=== PATIENT | female | born 1945 | race Caucasian/White ===

== ENCOUNTER 2021-09-19 12:12 | Inpatient (IN) | payer MEDICARE ==
[~2021-09-19] VITALS: Ht 152.4 cm; Wt 76.0 kg
[2021-09-19 14:05] VITALS: BP 141/78
[2021-09-19] MEDS ORDERED: FLU VACC QUAD 21-22 (6MOS+) PF 0.5 ML SYRINGE. VAX IM ONE (16:00)
[2021-09-19] MEDS ORDERED: CARV25TA2 PO ×2 (16:20)
[2021-09-19] MEDS ORDERED: FURO-68 PO (16:20)
[2021-09-19] MEDS ORDERED: NITR0.4T22 SL (16:20)
[2021-09-19] MEDS ORDERED: ATOR80TA72 PO (16:20)
[2021-09-19] MEDS ORDERED: ASPI-630 PO (16:20)
[2021-09-19] MEDS ORDERED: LOSA100T14 PO (16:20)
[2021-09-19] MEDS ORDERED: AMIO200T53 PO (16:20)
[2021-09-19] MEDS ORDERED: SPIR50TA4 PO (16:20)
[2021-09-19] MEDS ORDERED: ONDANSETRON PF 4 MG/2 ML VIAL. IVP PRN (16:45)
[2021-09-19] MEDS ORDERED: CALCIUM CARBONATE 500 MG TAB.CHEW PO PRN (16:45)
[2021-09-19] MEDS ORDERED: ELECTROLYTE (NON-ICU) PROTOCOL. MC PRN (16:45)
[2021-09-19] MEDS ORDERED: NITROGLYCERIN SUBLINGUAL 0.4 MG BOTTLE OF 25. SL PRN (17:00)
[2021-09-19] MEDS: ASPIRIN CHEWABLE 81 MG TABLET. PO SCH (17:47)
[2021-09-19] MEDS: LOSARTAN POTASSIUM 50 MG TABLET. PO SCH (18:52)
[2021-09-19] MEDS: CARVEDILOL 12.5 MG TABLET. PO SCH (18:52)
--- NOTE | 2021-09-19 19:05 | PDOC1 ---
History and Physical Date of Service: DOS: DATE: 09/19/21 TIME: 18:48 Chief Complaint: Chief Complain: SOB History of Present Illness: HPI: Patient is a 76-year-old female who presented to the emergency room at [facility] to 3-day history of shortness of breath. Reports GORDON and being unable to lay flat. Denies any decreased urine output. Normal PO intake.Reports compliance with medications. Feels weight has increased over past few days. Triple covid vaccinated Past Medical/Surgical History: PMH/PSH: CAD, CHF Allergies: Allergies: Coded Allergies: codeine (Verified Allergy, Intermediate, 09/19/21) morphine (Verified Allergy, Intermediate, 09/19/21) Family History: Family History: none known Social History: Social History: denies alcohol tobacco drug use Current Medications: Current Medications Current Medications Influenza Virus Vaccine Quadrival (Flulaval Quad Syringe) 0.5 ml ONCE ONCE VAX IM ; Start 09/19/21 at 16:00; Stop 09/19/21 at 16:01; Status UNV Ondansetron HCl (Zofran) 4 mg PRN Q6HRS PRN IVP NAUSEA/VOMITING; Start 09/19/21 at 16:45 Calcium Carbonate/ Glycine (Tums) 500 mg PRN Q3HRS PRN PO UPSET STOMACH; Start 09/19/21 at 16:45 Info (Non-Icu Electrolyte Protocol) 1 ea PRN DAILY PRN MC SEE COMMENTS; Start 09/19/21 at 16:45 Acetaminophen (Tylenol) 650 mg PRN Q6HRS PRN PO Headaches, Temp > 101.5F; Start 09/19/21 at 16:45 Senna/Docusate Sodium (Senna Plus) 1 tab BID PO ; Start 09/19/21 at 21:00 Heparin Sodium (Porcine) (Heparin Sodium) 5,000 unit Q8HRS SQ ; Start 09/19/21 at 22:00 Aspirin (Aspirin Chewable) 81 mg DAILY PO Last administered on 09/19/21at 17:47; Start 09/19/21 at 18:00 Furosemide (Lasix) 40 mg QODAY PO ; Start 09/20/21 at 09:00 Nitroglycerin (Nitrostat) 0.4 mg PRN Q5MIN PRN SL CHEST PAIN; Start 09/19/21 at 17:00 Atorvastatin Calcium (Lipitor) 80 mg QHS PO ; Start 09/19/21 at 21:00 Carvedilol (Coreg) 12.5 mg BIDWMEALS PO ; Start 09/19/21 at 17:00 Losartan Potassium (Cozaar) 100 mg DAILY PO ; Start 09/19/21 at 18:00 Spironolactone (Aldactone) 50 mg DAILY PO ; Start 09/20/21 at 09:00 Active Scripts Active Reported NITROGLYCERIN SubLingual (Nitroglycerin) 0.4 Mg Tab.subl 0.4 Mg SL PRN Q5MIN PRN Spironolactone 50 Mg Tablet 1 Tab PO DAILY Losartan Potassium 100 Mg Tablet 100 Mg PO DAILY Lasix (Furosemide) 40 Mg Tablet 1 Tab PO QODAY 30 Days Carvedilol 25 Mg Tablet 18.75 Mg PO DAILY Carvedilol 25 Mg Tablet 12.5 Mg PO HS Atorvastatin Calcium 80 Mg Tablet 80 Mg PO QHS Aspirin 81 Mg Tab.chew 1 Tab PO DAILY Amiodarone Hcl 200 Mg Tablet 1 Tab PO DAILY ROS: Review of Systems Review of System unless noted in HPI 14pt ROS negative Physical Exam: Vital Signs: Vital Signs Date Time Temp Pulse Resp B/P (MAP) Pulse Ox O2 Delivery O2 Flow Rate FiO2 09/19/21 16:00 Nasal Cannula 2.0 09/19/21 14:05 98.3 71 22 141/78 (99) 94 98.3 Physcial Exam: GEN: No apparent distress. Alert and oriented HEENT: Normal cephalic, atraumatic, external auditory canals are patent EYES: Extraocular muscles are intact, pupil are equally round and reactive to light and accommodation MUSCULOSKELETAL: Well developed , well nourished, good range of motion ENDOCRINE: No thyromegaly was palpated LYMPHATICS: No cervical chain or axillary nodes were noted HEMATOPOIETIC: No bruising NECK: Supple, no JVD, no thyromegaly was noted LUNGS: Clear to auscultation in all lung gallegos without rhonchi or wheezing HEART: RRR, S!, S2 present. Peripheral pulses intact, no obvious murmurs noted ABDOMEN: Soft, nontender. Positive bowel sounds, no organomegaly, normal bowel sounds EXTREMITIES: bilateral pitting edema NEUROLOGIC: Normal speech and tone. A&O x 3, moves all extremities, no obvious focal deficits PSYCHIATRIC: Normal affect, normal mood. Stable SKIN: No ulcerations or rashes, good skin turgor, no jaundice VASCULAR: Good capillary refill, neurovascular bundle appears to be intact Assessment/Plan Assessment/Plan Acute on chronic congestive heart failure unknown if systolic or diastolic, history CAD hypertension Admit to telemetry floor Received 40 IV Lasix at outside hospital with good response. Given borderline blood pressures will hold off any further diuresis overnight Other home meds resumed as indicated Strict I's and O's Working on obtaining records from Cardiology consult DVT prophylaxis Cardiac diet 22 minutes advance care planning Justifications for Admission Other Justification MARYJANE BUITRAGO MD Sep 19, 2021 19:05
[2021-09-19 19:49] VITALS: BP 107/55
[2021-09-19] MEDS: SENNOSIDES/DOCUSATE 8.6/50MG TABLET. PO SCH (21:39)
[2021-09-19] MEDS: ATORVASTATIN CALCIUM 40 MG TABLET. PO SCH (21:39)
[2021-09-19] MEDS: HEPARIN for SUB-Q USE 5,000 UNIT/ML VIAL. SQ SCH (21:40)
[2021-09-19 23:04] VITALS: BP 98/45
[2021-09-20] VITALS (8 sets, daily range): BP systolic 79–133; BP diastolic 36–68
[2021-09-20 03:22] LABS: BASO % 1 % (0-3); EOS % 1 % (0-3); HEMATOCRIT 29.5 % (36.0-47.0); HEMOGLOBIN 9.7 g/dL (12.0-15.5); LYMPH # 1.3 x10^3/uL (1.0-4.8); LYMPH % 14 % (24-48); MEAN CORPUSCULAR HEMOGLOBIN 32 pg (25-35); MEAN CORPUSCULAR HGB CONC 33 g/dL (31-37); MEAN CORPUSCULAR VOLUME 96 fL (79-100); MONO # 0.8 x10^3/uL (0.0-1.1); MONO % 10 % (0-9); NEUT # 6.5 x10^3/uL (1.8-7.7); NEUT % 75 % (31-73); PLATELET COUNT 231 x10^3/uL (140-400); RED BLOOD COUNT 3.07 x10^6/uL (3.50-5.40); WHITE BLOOD COUNT 8.7 x10^3/uL (4.0-11.0)
[2021-09-20 03:41] LABS: ALBUMIN 2.7 g/dL (3.4-5.0); ALBUMIN/GLOBULIN RATIO 0.7 (1.0-1.7); CALCIUM 8.6 mg/dL (8.5-10.1); CREATININE 2.3 mg/dL (0.6-1.0); GFR 20.5; POTASSIUM 4.4 mmol/L (3.5-5.1); TOTAL BILIRUBIN 0.9 mg/dL (0.2-1.0); TOTAL PROTEIN 6.7 g/dL (6.4-8.2)
[2021-09-20 03:58] LABS: CHOLESTEROL/HDL RATIO 3.6
[2021-09-20] MEDS ORDERED: ALBUMIN HUMAN 25% 100 ML IV ONE (05:00)
[2021-09-20] MEDS: HEPARIN for SUB-Q USE 5,000 UNIT/ML VIAL. SQ SCH ×3 (06:05→20:15)
[2021-09-20] MEDS: CARVEDILOL 12.5 MG TABLET. PO SCH ×2 (08:00→18:35)
[2021-09-20] MEDS: ASPIRIN CHEWABLE 81 MG TABLET. PO SCH (08:38)
[2021-09-20] MEDS: SENNOSIDES/DOCUSATE 8.6/50MG TABLET. PO SCH ×2 (08:38→20:14)
[2021-09-20] MEDS: LOSARTAN POTASSIUM 50 MG TABLET. PO SCH (09:00)
[2021-09-20] MEDS: SPIRONOLACTONE 25 MG TABLET PO SCH (09:00)
[2021-09-20] MEDS: FUROSEMIDE 40 MG TABLET. PO SCH (09:00)
[2021-09-20 09:16] LABS: BACTERIA,URINE MANY /HPF (0-FEW); HYALINE CASTS, URINE FEW /HPF; RBC,URINE OCC /HPF (0-2)
--- NOTE | 2021-09-20 09:42 | NUR ---
Spoke with Dr. Lea about patient's BP 79/35 and p 65. Held BP meds this am. Received albumin prior shift change.
--- NOTE | 2021-09-20 10:06 | PDOC ---
[employer] PROGRESS NOTE Date of Service DOS: DATE: 09/20/21 TIME: 09:52 Chief Complaint Chief Complaint Shortness of breath -negative COVID-19. She said a cough for some time but not significantly productive clear frothy sputum. Likely this is acute CHF Acute combined CHF -will dibroe. Consult cardiology for further assistance Acute respiratory failure with hypoxia -due to acute CHF exacerbation most likely will less likely pneumonia given bilateral changes in bilateral adventitious breath sounds Cardiomyopathy S/p AICD - no discharges per patient History of Present Illness History of Present Illness Patient is a 76-year-old female with past medical history significant for CAD, CHF, hypercholesteremia and hypertension who presents to the emergency department with a chief complaint of shortness of breath for about the last 3 days more than usual. States she has had some dyspnea on exertion, and orthopnea and has had to sleep sitting up. States that she is probably gained a few pounds over the last week. Does not feel as if she is having any swelling or edema. States she is making urine and stool normally for her with no blood in either. States she is taking all her medications as prescribed. States she has had all of her COVID vaccinations and denies any known ill contacts. Denies any recent travels, fevers, chest pain, nausea, vomiting, abdominal pain. 09/20: COVID-19 negative. 30 saturations 96% on 5 L/min nasal cannula. Patient little better able to lay more flat. She was unable to get up to the commode is wearing an adult diaper to urinate. Feels little weak but overall feels her shortness of breath is little improved. Note she was recently switched to furosemide 3 times per week and her Aldactone has been reduced by 75%. Vitals/I&O Vitals/I&O: Vital Signs Date Time Temp Pulse Resp B/P (MAP) Pulse Ox O2 Delivery O2 Flow Rate FiO2 09/20/21 07:35 Nasal Cannula 3.0 09/20/21 07:00 97.9 65 18 116/40 (65) 92 97.9 I & O 09/19/21 09/19/21 09/20/21 15:00 23:00 07:00 Intake Total 260 ml 300 ml Output Total 125 ml Balance 260 ml 175 ml Physical Exam General: Alert, Oriented X3, Cooperative, mild distress Heart: Regular rate, Normal S1, Normal S2 Lungs: Crackles (bibasilar) Abdomen: Normal bowel sounds, Soft Extremities: No clubbing, No cyanosis Skin: No rashes, No breakdown Labs Labs: Laboratory Tests Test 09/20/21 02:30 09/20/21 08:30 White Blood Count 8.7 x10^3/uL (4.0-11.0) Red Blood Count 3.07 x10^6/uL (3.50-5.40) Hemoglobin 9.7 g/dL (12.0-15.5) Hematocrit 29.5 % (36.0-47.0) Mean Corpuscular Volume 96 fL (79-100) Mean Corpuscular Hemoglobin 32 pg (25-35) Mean Corpuscular Hemoglobin Concent 33 g/dL (31-37) Red Cell Distribution Width 14.0 % (11.5-14.5) Platelet Count 231 x10^3/uL (140-400) Neutrophils (%) (Auto) 75 % (31-73) Lymphocytes (%) (Auto) 14 % (24-48) Monocytes (%) (Auto) 10 % (0-9) Eosinophils (%) (Auto) 1 % (0-3) Basophils (%) (Auto) 1 % (0-3) Neutrophils # (Auto) 6.5 x10^3/uL (1.8-7.7) Lymphocytes # (Auto) 1.3 x10^3/uL (1.0-4.8) Monocytes # (Auto) 0.8 x10^3/uL (0.0-1.1) Eosinophils # (Auto) 0.0 x10^3/uL (0.0-0.7) Basophils # (Auto) 0.0 x10^3/uL (0.0-0.2) Sodium Level 142 mmol/L (136-145) Potassium Level 4.4 mmol/L (3.5-5.1) Chloride Level 109 mmol/L (98-107) Carbon Dioxide Level 21 mmol/L (21-32) Anion Gap 12 (6-14) Blood Urea Nitrogen 51 mg/dL (7-20) Creatinine 2.3 mg/dL (0.6-1.0) Estimated GFR (Cockcroft-Gault) 20.5 BUN/Creatinine Ratio 22 (6-20) Glucose Level 90 mg/dL (70-99) Calcium Level 8.6 mg/dL (8.5-10.1) Total Bilirubin 0.9 mg/dL (0.2-1.0) Aspartate Amino Transf (AST/SGOT) 18 U/L (15-37) Alanine Aminotransferase (ALT/SGPT) 30 U/L (14-59) Alkaline Phosphatase 116 U/L (46-116) Total Protein 6.7 g/dL (6.4-8.2) Albumin 2.7 g/dL (3.4-5.0) Albumin/Globulin Ratio 0.7 (1.0-1.7) Triglycerides Level 85 mg/dL (0-150) Cholesterol Level 132 mg/dL (0-200) LDL Cholesterol, Calculated 78 mg/dL (0-100) VLDL Cholesterol, Calculated 17 mg/dL (0-40) Non-HDL Cholesterol Calculated 95 mg/dL (0-129) HDL Cholesterol 37 mg/dL (40-60) Cholesterol/HDL Ratio 3.6 Thyroid Stimulating Hormone (TSH) 3.414 uIU/mL (0.358-3.74) Urine Collection Type Unknown Urine Color (Auto) Yellow Urine Turbidity Hazy Urine pH (Auto) 5.0 (<5.0-8.0) Urine Specific [place] 1.019 (1.000-1.030) Urine Protein (Auto) Negative mg/dL (Negative) Urine Glucose (Auto)(UA) Negative mg/dL (Negative) Urine Ketones (Auto) Negative mg/dL (Negative) Urine Blood (Auto) Negative (Negative) Urine Nitrite Negative (Negative) Urine Bilirubin (Auto) Negative (Negative) Urine Urobilinogen (Auto) Normal mg/dL (Normal) Urine Leukocyte Esterase (Auto) Small (Negative) Urine RBC Occ /HPF (0-2) Urine WBC 1-4 /HPF (0-4) Urine Squamous Epithelial Cells Mod /LPF Urine Bacteria Many /HPF (0-FEW) Urine Hyaline Casts Few /HPF Comment Review of Relevant I have reviewed the following items poli (where applicable) has been applied. Medications: Current Medications Medications (Trade) Dose Ordered Sig/Koby Route PRN Reason Start Time Stop Time Status Last Admin Dose Admin Senna/Docusate Sodium (Senna Plus) 1 tab BID PO 09/19/21 21:00 09/20/21 08:38 Heparin Sodium (Porcine) (Heparin Sodium) 5,000 unit Q8HRS SQ 09/19/21 22:00 09/20/21 06:05 Aspirin (Aspirin Chewable) 81 mg DAILY PO 09/19/21 18:00 09/20/21 08:38 Atorvastatin Calcium (Lipitor) 80 mg QHS PO 09/19/21 21:00 09/19/21 21:39 Carvedilol (Coreg) 12.5 mg BIDWMEALS PO 09/19/21 17:00 09/19/21 18:52 Losartan Potassium (Cozaar) 100 mg DAILY PO 09/19/21 18:00 09/19/21 18:52 Albumin Human 100 ml @ 100 mls/hr 1X ONCE IV 09/20/21 05:00 09/20/21 05:59 DC 09/20/21 06:04 Justifications for Admission Other Justification MARYJANE SERVIN MD Sep 20, 2021 10:06
--- NOTE | 2021-09-20 12:47 | PDOC2 ---
MIGUELINA STOREY JOURNEYMAN WELDER 09/20/21 1247: CARDIAC CONSULT DATE OF CONSULT Date of Consult DATE: 09/20/21 TIME: 12:44 REASON FOR CONSULT Reason for Consult: CHF REFERRING PHYSICIAN Referring Physician: Dr. Lea SOURCE Source: Chart review, Patient HISTORY OF PRESENT ILLNESS HISTORY OF PRESENT ILLNESS This is a 76 yo female who presented to [facility] secondary to shortness of breath. Patient reports chronic shortness of breath. Has been worse the last couple of weeks. Denies any chest pain, palpitations, dizziness, diaphoresis, or nausea/vomiting. Has known history of CAD and ICM s/p AICD. Follows with [facility], Dr. Umanzor. PAST MEDICAL HISTORY Cardiovascular: CAD, CHF, HTN, Hyperlipidemia, Other (aortic aneurysm, NSVT, v- fib arrest ) CENTRAL NERVOUS SYSTEM: CVA Musculoskeletal: Osteoarthritis Renal/: Chronic renal insuff PAST SURGICAL HISTORY Past Surgical History: Pacemaker (ACID ), Cataract Removal, Hysterectomy FAMILY HISTORY Family History: Heart Disease SOCIAL HISTORY Smoke: Quit ALCOHOL: occassional Drugs: None Lives: with Family CURRENT MEDICATIONS CURRENT MEDICATIONS Current Medications Medications (Trade) Dose Ordered Sig/Koby Route PRN Reason Start Time Stop Time Status Last Admin Dose Admin Senna/Docusate Sodium (Senna Plus) 1 tab BID PO 09/19/21 21:00 09/20/21 08:38 Heparin Sodium (Porcine) (Heparin Sodium) 5,000 unit Q8HRS SQ 09/19/21 22:00 09/20/21 06:05 Aspirin (Aspirin Chewable) 81 mg DAILY PO 09/19/21 18:00 09/20/21 08:38 Atorvastatin Calcium (Lipitor) 80 mg QHS PO 09/19/21 21:00 09/19/21 21:39 Carvedilol (Coreg) 12.5 mg BIDWMEALS PO 09/19/21 17:00 09/19/21 18:52 Losartan Potassium (Cozaar) 100 mg DAILY PO 09/19/21 18:00 09/19/21 18:52 Albumin Human 100 ml @ 100 mls/hr 1X ONCE IV 09/20/21 05:00 09/20/21 05:59 DC 09/20/21 06:04 ALLERGIES ALLERGIES: Coded Allergies: codeine (Verified Allergy, Intermediate, 09/19/21) morphine (Verified Allergy, Intermediate, 09/19/21) ROS Review of System 14 point ROS conducted with pertinent positives noted above in HPI PHYSICAL EXAM General: Alert, Oriented X3, Cooperative, No acute distress HEENT: Atraumatic Lungs: Other (crackles, diminished bases) Heart: Regular rate Abdomen: Soft, No tenderness Extremities: No edema Skin: No significant lesion Neuro: Normal speech, Sensation intact Psych/Mental Status: Mental status NL, Mood NL MUSCULOSKELETAL: Osteoarthritic changes both hands VITALS/I&O VITALS/I&O: Vital Signs Date Time Temp Pulse Resp B/P (MAP) Pulse Ox O2 Delivery O2 Flow Rate FiO2 09/20/21 11:00 98.4 68 16 124/56 (78) 97 Nasal Cannula 3.0 98.4 I & O 09/19/21 09/19/21 09/20/21 15:00 23:00 07:00 Intake Total 260 ml 300 ml Output Total 125 ml Balance 260 ml 175 ml LABS Lab: Laboratory Tests Test 09/20/21 02:30 09/20/21 08:30 White Blood Count 8.7 x10^3/uL (4.0-11.0) Red Blood Count 3.07 x10^6/uL (3.50-5.40) L Hemoglobin 9.7 g/dL (12.0-15.5) L Hematocrit 29.5 % (36.0-47.0) L Mean Corpuscular Volume 96 fL (79-100) Mean Corpuscular Hemoglobin 32 pg (25-35) Mean Corpuscular Hemoglobin Concent 33 g/dL (31-37) Red Cell Distribution Width 14.0 % (11.5-14.5) Platelet Count 231 x10^3/uL (140-400) Neutrophils (%) (Auto) 75 % (31-73) H Lymphocytes (%) (Auto) 14 % (24-48) L Monocytes (%) (Auto) 10 % (0-9) H Eosinophils (%) (Auto) 1 % (0-3) Basophils (%) (Auto) 1 % (0-3) Neutrophils # (Auto) 6.5 x10^3/uL (1.8-7.7) Lymphocytes # (Auto) 1.3 x10^3/uL (1.0-4.8) Monocytes # (Auto) 0.8 x10^3/uL (0.0-1.1) Eosinophils # (Auto) 0.0 x10^3/uL (0.0-0.7) Basophils # (Auto) 0.0 x10^3/uL (0.0-0.2) Sodium Level 142 mmol/L (136-145) Potassium Level 4.4 mmol/L (3.5-5.1) Chloride Level 109 mmol/L (98-107) H Carbon Dioxide Level 21 mmol/L (21-32) Anion Gap 12 (6-14) Blood Urea Nitrogen 51 mg/dL (7-20) H Creatinine 2.3 mg/dL (0.6-1.0) H Estimated GFR (Cockcroft-Gault) 20.5 BUN/Creatinine Ratio 22 (6-20) H Glucose Level 90 mg/dL (70-99) Calcium Level 8.6 mg/dL (8.5-10.1) Total Bilirubin 0.9 mg/dL (0.2-1.0) Aspartate Amino Transferase (AST) 18 U/L (15-37) Alanine Aminotransferase (ALT) 30 U/L (14-59) Alkaline Phosphatase 116 U/L (46-116) Total Protein 6.7 g/dL (6.4-8.2) Albumin 2.7 g/dL (3.4-5.0) L Albumin/Globulin Ratio 0.7 (1.0-1.7) L Triglycerides Level 85 mg/dL (0-150) Cholesterol Level 132 mg/dL (0-200) LDL Cholesterol, Calculated 78 mg/dL (0-100) VLDL Cholesterol, Calculated 17 mg/dL (0-40) Non-HDL Cholesterol Calculated 95 mg/dL (0-129) HDL Cholesterol 37 mg/dL (40-60) L Cholesterol/HDL Ratio 3.6 Thyroid Stimulating Hormone (TSH) 3.414 uIU/mL (0.358-3.74) Urine Collection Type Unknown Urine Color (Auto) Yellow Urine Turbidity Hazy Urine pH (Auto) 5.0 (<5.0-8.0) Urine Specific [place] 1.019 (1.000-1.030) Urine Protein (Auto) Negative mg/dL (Negative) Urine Glucose (Auto)(UA) Negative mg/dL (Negative) Urine Ketones (Auto) Negative mg/dL (Negative) Urine Blood (Auto) Negative (Negative) Urine Nitrite Negative (Negative) Urine Bilirubin (Auto) Negative (Negative) Urine Urobilinogen (Auto) Normal mg/dL (Normal) Urine Leukocyte Esterase (Auto) Small (Negative) Urine RBC Occ /HPF (0-2) Urine WBC 1-4 /HPF (0-4) Urine Squamous Epithelial Cells Mod /LPF Urine Bacteria Many /HPF (0-FEW) Urine Hyaline Casts Few /HPF Laboratory Tests 09/20/21 02:30 Laboratory Tests 09/20/21 02:30 ECHOCARDIOGRAM ECHOCARDIOGRAM 10/2012 Echo @ [facility]: 1. Normal left ventricular chamber size and wall thickness. The mid to distal inferior, inferoapical, and inferobasal segments appear hypokinetic. Moderate left ventricular systolic dysfunction, with ef of 38%. 2. Possible pseudo-normalization of the left ventricular diastolic function. 3. Small posterior pericardial effusion. 4. Mild aortic valve sclerosis. 5. Trace MR and pulmonic regurg. 6. PA pressure is normal at 24 mmHg. 7. Mild dilatation of the ascending aorta. HEART CATH HEART CATH 08/11/10- Cath- Severe/critical CAD with 80% ostial and 100% prox LAD occlusion, occluded ramus, and subtotal occlusion of the midcirc. Dominant RCA 40-50% mid stenosis with [id number] collaterals supplying the LAD, circ and the ramus branch. LV EF 15% with large area of anterior akinesis (nonviable by thallium). Severely elevated LVEDP. CTS consult- not surgical candidate, back to oven laborer- PCI of the ramus with a 2.5 x 23 and 2.5 x 12 Xience V drug-eluting stent, IABP placed. ASSESSMENT/PLAN ASSESSMENT/PLAN 1. Acute on chronic systolic CHF; improved s/p IV diuresis 2. Ischemic Cardiomyopathy s/p AICD ([employer]). Last echo noted per [facility] records was in 2012 with an EF 38% 3. CAD s/p PCI/stent to ramus in 2010. with known occluded LAD and circumflex, collaterals from RCA. Managed medically. Follows with Dr. Noé BENNETT 4. KORY on CKD 5. Hypertension; low end 6. Hyperlipidemia; statin 7. H/o VF arrest; on Amiodarone therapy for rhythm maintenance. s/p AICD 8. Large ascending aortic saccular aneurysm; patient has declined any re- attempt at surgical intervention. Her previous heart catheterization was associated with an acute CVA 9. H/o CVA Recommendations Monitor renal function. Hold further diuresis for now with rising Cr level Hold ARB Echo to assess LV systolic function May need inotropic support Secondary prevention Further pending above ANA MARÍA MG MD 09/21/21 0817: CARDIAC CONSULT ASSESSMENT/PLAN ASSESSMENT/PLAN Late entry for 09/20/2021 Patient seen and examined. Agree with above nurse practitioner note. Depending on renal function and may need a right heart catheterization and consideration of inotropic support. Reassess on Sunday. MIGUELINA STOREY APRN Sep 20, 2021 12:47 ANA MARÍA MG MD Sep 21, 2021 08:17
[2021-09-20] MEDS: AMIODARONE HCL 200 MG TABLET. PO SCH (15:17)
--- NOTE | 2021-09-20 15:43 | NUR ---
SS following for discharge planning. SS reviewed pt chart and discussed with pt RN. Pt is from home and is currently requiring oxygen at three liters nasal canula. Pt has no home oxygen. Cardiology following. ECHO today. SS will continue to follow for discharge planning.
--- NOTE | 2021-09-20 19:30 | CARD ---
MR#: [id number] Date of Study: 09/20/2021 Ordering Physician: MARYJANE BUITRAGO, Referring Physician: MARYJANE BUITRAGO, Tech: Lani Lea [facility] APPROVED REPORT EXAM: Two-dimensional and M-mode echocardiogram with Doppler and color Doppler. Other Information Quality : GoodHR: 59bpm Rhythm : NSR INDICATION Dyspnea Cardiac Disease: CAD RISK FACTORS Hypertension Obesity Hyperlipidemia Diabetes 2D DIMENSIONS RVDd3.9 (2.9-3.5cm)Left Atrium(2D)4.4 (1.6-4.0cm) IVSd1.3 (0.7-1.1cm)Aortic Root(2D)3.6 (2.0-3.7cm) LVDd5.9 (3.9-5.9cm)LVOT Diameter2.4 (1.8-2.4cm) PWd1.1 (0.7-1.1cm)LVDs5.2 (2.5-4.0cm) FS (%) 11.7 %SV43.6 ml Aortic Valve AoV Peak Shady.131.8cm/sAoV VTI32.7cm AO Peak GR.6.9mmHgLVOT Peak Shady.83.2cm/s AO Mean GR.4mmHgAVA (VMAX)2.79cm2 Mitral Valve MV E Sljhmzpw474.4cm/sMV DECEL [id number] MV A Mwfreinv30.5cm/sE/A Ratio2.3 Pulmonary Valve PV Peak Krfpmjap06.0cm/s Tricuspid Valve TR P. Tjgtaxgy055mh/sTR Peak Gr.39mmHg LEFT VENTRICLE The Left Ventricle is borderline dilated. There is mild concentric left ventricular hypertrophy. The LV systolic function is severely impaired. LV ejection fraction is estimated 25%. There is severe rolan bal hypokinesis of the left ventricle. RIGHT VENTRICLE The right ventricle is normal size. There is normal right ventricular wall thickness. The right ventr icular systolic function is normal. There is a device lead in the right ventricle. ATRIA The left atrium is moderately dilated. The right atrium is mildly dilated. The interatrial septum is intact with no evidence for an atrial septal defect or patent foramen ovale as noted on 2-D or Dopple r imaging. AORTIC VALVE The aortic valve is normal in structure and function. Doppler and Color Flow revealed trace aortic re gurgitation. There is no significant aortic valvular stenosis. MITRAL VALVE The mitral valve is normal in structure and function. There is no evidence of mitral valve prolapse. There is no mitral valve stenosis. Doppler and Color-flow revealed mild to moderate mitral regurgitat ion. TRICUSPID VALVE The tricuspid valve is normal in structure and function. Doppler and Color Flow revealed mild tricusp id regurgitation. Estimated PAP 38-40 mmHg. There is no tricuspid valve stenosis. PULMONIC VALVE The pulmonary valve is normal in structure and function. Doppler and Color Flow revealed mild pulmoni c valvular regurgitation. GREAT VESSELS The aortic root is borderline normal in size. The IVC is normal in size and collapses >50% with inspi ration. PERICARDIAL EFFUSION There is no evidence of significant pericardial effusion. Critical Notification Critical Value: No <Conclusion> The Left Ventricle is borderline dilated. The LV systolic function is severely impaired. LV ejection fraction is estimated 25%. There is severe global hypokinesis of the left ventricle. There is mild concentric left ventricular hypertrophy. Doppler and Color Flow revealed trace aortic regurgitation. There is no significant aortic valvular stenosis. Doppler and Color-flow revealed mild to moderate mitral regurgitation. Doppler and Color Flow revealed mild tricuspid regurgitation. Estimated PAP 38-40 mmHg. Signed by : Sesar Raymond MD Electronically Approved : 09/20/2021 19:30:44
[2021-09-20] MEDS: ATORVASTATIN CALCIUM 40 MG TABLET. PO SCH (20:14)
[2021-09-21] VITALS (12 sets, daily range): BP systolic 80–127; BP diastolic 41–66
[2021-09-21 05:28] LABS: CALCIUM 9.2 mg/dL (8.5-10.1); CREATININE 2.2 mg/dL (0.6-1.0); GFR 21.6; POTASSIUM 4.4 mmol/L (3.5-5.1)
[2021-09-21] MEDS: HEPARIN for SUB-Q USE 5,000 UNIT/ML VIAL. SQ SCH ×3 (06:39→19:42)
[2021-09-21] MEDS: SENNOSIDES/DOCUSATE 8.6/50MG TABLET. PO SCH ×2 (08:13→19:42)
[2021-09-21] MEDS: ASPIRIN CHEWABLE 81 MG TABLET. PO SCH (08:13)
[2021-09-21] MEDS: AMIODARONE HCL 200 MG TABLET. PO SCH (08:13)
[2021-09-21] MEDS: SPIRONOLACTONE 25 MG TABLET PO SCH (08:14)
[2021-09-21] MEDS: CARVEDILOL 12.5 MG TABLET. PO SCH ×2 (08:14→17:11)
--- NOTE | 2021-09-21 11:09 | PDOC ---
MIGUELINA STOREY AUTOCAD 09/21/21 1109: CARDIO Progress Notes Date and Time Date of Service 09/21/21 Time of Evaluation 1100 Subjective Subjective: No Chest Pain, No Palpitations, No Dizziness, Other (retaining fluid in abdomen. Still short of breath with exertion. Had some difficulty breathing overnight ) Vitals Vitals Vital Signs Date Time Temp Pulse Resp B/P (MAP) Pulse Ox O2 Delivery O2 Flow Rate FiO2 09/21/21 08:14 64 127/59 09/21/21 08:00 Nasal Cannula 2.0 09/21/21 07:00 98.7 22 93 98.7 Weight Weight [ ] Input and Output Intake and Output Intake and Output 09/21/21 07:00 Intake Total 400 ml Output Total 100 ml Balance 300 ml Intake Oral 400 ml Output Urine Total 100 ml # Voids 5 Laboratory Labs Laboratory Tests Test 09/21/21 03:40 Sodium Level 142 mmol/L (136-145) Potassium Level 4.4 mmol/L (3.5-5.1) Chloride Level 108 mmol/L (98-107) Carbon Dioxide Level 22 mmol/L (21-32) Anion Gap 12 (6-14) Blood Urea Nitrogen 49 mg/dL (7-20) Creatinine 2.2 mg/dL (0.6-1.0) Estimated GFR (Cockcroft-Gault) 21.6 Glucose Level 113 mg/dL (70-99) Calcium Level 9.2 mg/dL (8.5-10.1) Physical Exam HEENT: Neck Supple W Full Motion Chest: Symmetric LUNGS: Other (diminished bases) Heart: RRR (a-paced ) Abdomen: Soft N/T Extremities: No Edema Neurology: alert, oriented, follow commands Assessment Assessment 1. Acute on chronic systolic CHF; improved s/p IV diuresis, but likely needs further fluid offloading 2. Ischemic Cardiomyopathy s/p AICD (Medtronic). Last echo noted per [facility] records was in 2012 with an EF 38%. Echo this admission with LVEF 25% 3. CAD s/p PCI/stent to ramus in 2010. with known occluded LAD and circumflex, collaterals from RCA. Managed medically. Follows with Dr. Noé BENNETT 4. KORY on CKD; Cr at 2.2 5. Hypertension; low end 6. Hyperlipidemia; statin 7. H/o VF arrest; on Amiodarone therapy for rhythm maintenance. s/p AICD 8. Large ascending aortic saccular aneurysm; patient has declined any re- attempt at surgical intervention. Her previous heart catheterization was associated with an acute CVA 9. H/o CVA Recommendations Hold ARB Will start inotropic support with dobutamine as blood pressure is low end. Needs RHC given CHF, renal insufficiency. R/b/a discussed with patient and and they are agreeable. Monitor I and O, daily weights Discussed 2 Gm Na diet, 2000cc FR, and daily weight monitoring. Secondary prevention NPO p MN Justicifation of Admission Dx: Justifications for Admission: Justification of Admission Dx: Yes Comments: Acute on chronic systolic CHF CAD Ischemic cardiomyopathy KORY on CKD ANA MARÍA MG MD 09/21/217: CARDIO Progress Notes Plan Plan Patient seen and examined. Agree with above nurse practitioner note. Case discussed with the patient's daughter as well as the patient and her . Given decompensated heart failure we will plan for right heart catheterization to help guide therapy. Supportive care. MIGUELINA STOREY APRN Sep 21, 2021 11:09 ANA MARÍA MG MD Sep 21, 2021 21:57
--- NOTE | 2021-09-21 12:23 | PDOC ---
[facility] PROGRESS NOTE Date of Service DOS: DATE: 09/21/21 TIME: 12:23 Chief Complaint Chief Complaint Shortness of breath -negative COVID-19. She said a cough for some time but not significantly productive clear frothy sputum. Likely this is acute CHF Acute combined CHF -will dibroe. Consult cardiology for further assistance Acute respiratory failure with hypoxia -due to acute CHF exacerbation most likely will less likely pneumonia given bilateral changes in bilateral adventitious breath sounds Cardiomyopathy S/p AICD - no discharges per patient History of Present Illness History of Present Illness Patient is a 76-year-old female with past medical history significant for CAD, CHF, hypercholesteremia and hypertension who presents to the emergency department with a chief complaint of shortness of breath for about the last 3 days more than usual. States she has had some dyspnea on exertion, and orthopnea and has had to sleep sitting up. States that she is probably gained a few pounds over the last week. Does not feel as if she is having any swelling or edema. States she is making urine and stool normally for her with no blood in either. States she is taking all her medications as prescribed. States she has had all of her COVID vaccinations and denies any known ill contacts. Denies any recent travels, fevers, chest pain, nausea, vomiting, abdominal pain. 09/20: COVID-19 negative. O2 saturations 96% on 5 L/min nasal cannula. Patient little better able to lay more flat. She was unable to get up to the commode is wearing an adult diaper to urinate. Feels little weak but overall feels her shortness of breath is little improved. Note she was recently switched to furosemide 3 times per week and her Aldactone has been reduced by 75%. 09/21: Had some shortness of breath overnight. CXR with some interstitial changes today. She is feeling depressed. Didn't sleep well. Plan for RHC in AM after echo revealed LV ejection fraction is estimated 25% and severe global hypokinesis of the left ventricle. Vitals/I&O Vitals/I&O: Vital Signs Date Time Temp Pulse Resp B/P (MAP) Pulse Ox O2 Delivery O2 Flow Rate FiO2 09/21/21 11:00 98.1 65 20 94/41 (58) 96 Nasal Cannula 2.5 98.1 I & O 09/20/21 09/20/21 09/21/21 15:00 23:00 07:00 Intake Total 400 ml Output Total 100 ml Balance 300 ml Physical Exam General: Alert, Oriented X3, Cooperative, No acute distress Heart: Regular rate Lungs: Crackles (bibasilar) Abdomen: Soft, No tenderness Extremities: No edema Skin: No significant lesion Labs Labs: Laboratory Tests Test 09/21/21 03:40 Sodium Level 142 mmol/L (136-145) Potassium Level 4.4 mmol/L (3.5-5.1) Chloride Level 108 mmol/L (98-107) Carbon Dioxide Level 22 mmol/L (21-32) Anion Gap 12 (6-14) Blood Urea Nitrogen 49 mg/dL (7-20) Creatinine 2.2 mg/dL (0.6-1.0) Estimated GFR (Cockcroft-Gault) 21.6 Glucose Level 113 mg/dL (70-99) Calcium Level 9.2 mg/dL (8.5-10.1) Comment Review of Relevant I have reviewed the following items poli (where applicable) has been applied. Justifications for Admission Other Justification MARYJANE SERVIN MD Sep 21, 2021 12:23
--- NOTE | 2021-09-21 14:20 | NUR ---
SS following up with discharge planning. SS reviewed pt chart and discussed with pt RN. Pt is currently requiring oxygen at two and a half liters nasal canula. Pt has no home oxygen. Cardiology following. Pt scheduled for right heart cath tomorrow. SS will continue to follow for discharge planning.
[2021-09-21] MEDS: ATORVASTATIN CALCIUM 40 MG TABLET. PO SCH (19:40)
[2021-09-21] MEDS: MIRTAZAPINE 15 MG TABLET PO SCH (21:39)
[2021-09-22] VITALS (23 sets, daily range): BP systolic 60–126; BP diastolic 29–68
[2021-09-22] MEDS: HEPARIN for SUB-Q USE 5,000 UNIT/ML VIAL. SQ SCH ×3 (05:31→22:09)
--- NOTE | 2021-09-22 05:32 | NUR ---
Heparin SQ held d/t pt having heart cath today. pmrn
[2021-09-22 05:39] LABS: CALCIUM 8.8 mg/dL (8.5-10.1); CREATININE 1.8 mg/dL (0.6-1.0); GFR 27.2; POTASSIUM 4.4 mmol/L (3.5-5.1)
[2021-09-22] MEDS: AMIODARONE HCL 200 MG TABLET. PO SCH (07:45)
[2021-09-22] MEDS: FUROSEMIDE 40 MG TABLET. PO SCH (07:45)
[2021-09-22] MEDS: ASPIRIN CHEWABLE 81 MG TABLET. PO SCH (07:45)
[2021-09-22] MEDS: CARVEDILOL 12.5 MG TABLET. PO SCH ×2 (07:45→17:00)
[2021-09-22] MEDS: SPIRONOLACTONE 25 MG TABLET PO SCH (07:46)
[2021-09-22] MEDS: SENNOSIDES/DOCUSATE 8.6/50MG TABLET. PO SCH ×2 (07:46→22:08)
--- NOTE | 2021-09-22 10:42 | PDOC ---
[facility] PROGRESS NOTE Date of Service DOS: DATE: 09/22/21 TIME: 10:40 Chief Complaint Chief Complaint Shortness of breath -negative COVID-19. She said a cough for some time but not significantly productive clear frothy sputum. Likely this is acute CHF Acute combined CHF -will diurese. Consult cardiology for further assistance Acute respiratory failure with hypoxia -due to acute CHF exacerbation most likely will less likely pneumonia given bilateral changes in bilateral adventitious breath sounds Cardiomyopathy S/p AICD - no discharges per patient History of Present Illness History of Present Illness Patient is a 76-year-old female with past medical history significant for CAD, CHF, hypercholesteremia and hypertension who presents to the emergency department with a chief complaint of shortness of breath for about the last 3 days more than usual. States she has had some dyspnea on exertion, and orthopnea and has had to sleep sitting up. States that she is probably gained a few pounds over the last week. Does not feel as if she is having any swelling or edema. States she is making urine and stool normally for her with no blood in either. States she is taking all her medications as prescribed. States she has had all of her COVID vaccinations and denies any known ill contacts. Denies any recent travels, fevers, chest pain, nausea, vomiting, abdominal pain. 09/20: COVID-19 negative. O2 saturations 96% on 5 L/min nasal cannula. Patient little better able to lay more flat. She was unable to get up to the commode is wearing an adult diaper to urinate. Feels little weak but overall feels her shortness of breath is little improved. Note she was recently switched to furosemide 3 times per week and her Aldactone has been reduced by 75%. 09/21: Had some shortness of breath overnight. CXR with some interstitial changes today. She is feeling depressed. Didn't sleep well. Plan for RHC in AM after echo revealed LV ejection fraction is estimated 25% and severe global hypokinesis of the left ventricle. 09/22: Blood pressure and symptoms improved on dobutamine infusion and continue diuresis. Still short of breath but is able to lay more flat. Very anxious. She is n.p.o. for right heart cath today still requiring 3 L nasal cannula oxygen. Previously has had oxygen but only when she had pneumonia. She is euvolemic after right heart cath will need a 6-minute walk prior to discharge. If she still volume overloaded we will continue dobutamine and diuresis and follow cardiology's lead. Discussed with bedside Vitals/I&O Vitals/I&O: Vital Signs Date Time Temp Pulse Resp B/P (MAP) Pulse Ox O2 Delivery O2 Flow Rate FiO2 09/22/21 08:00 Nasal Cannula 2.0 09/22/21 07:45 62 125/58 09/22/21 07:00 98.1 92 98.1 09/21/21 19:19 18 I & O 09/21/21 09/21/21 09/22/21 15:00 23:00 07:00 Intake Total 620 ml 100 ml 0 ml Balance 620 ml 100 ml 0 ml Physical Exam General: Alert, Oriented X3, Cooperative, No acute distress Heart: Regular rate Lungs: Crackles (bibasilar) Abdomen: Soft, No tenderness Extremities: No edema Skin: No significant lesion Labs Labs: Laboratory Tests Test 09/22/21 05:10 Sodium Level 144 mmol/L (136-145) Potassium Level 4.4 mmol/L (3.5-5.1) Chloride Level 111 mmol/L (98-107) Carbon Dioxide Level 22 mmol/L (21-32) Anion Gap 11 (6-14) Blood Urea Nitrogen 43 mg/dL (7-20) Creatinine 1.8 mg/dL (0.6-1.0) Estimated GFR (Cockcroft-Gault) 27.2 Glucose Level 86 mg/dL (70-99) Calcium Level 8.8 mg/dL (8.5-10.1) Comment Review of Relevant I have reviewed the following items poli (where applicable) has been applied. Medications: Current Medications Medications (Trade) Dose Ordered Sig/Koby Route PRN Reason Start Time Stop Time Status Last Admin Dose Admin Dobutamine HCl/ Dextrose 250 ml @ 11.505 mls/ hr CONT PRN IV SEE I/O RECORD 09/21/21 14:15 09/21/21 15:24 Mirtazapine (Remeron) 15 mg QHS PO 09/21/21 21:00 09/21/21 21:39 Justifications for Admission Other Justification MARYJANE SERVIN MD Sep 22, 2021 10:42
--- NOTE | 2021-09-22 13:11 | NUR ---
HEPARIN SQ DOSE FOR 1400 NOT GIVEN, PT SET TO GO TO [facility] AT 1400.
--- NOTE | 2021-09-22 13:11 | NUR ---
PT REPORTS (B) FOOT PAIN WHEN BEARING WEIGHT. DISCUSSED WITH DR SERVIN, WHO FEELS IT IS A SIDE EFFECT OF THE DOBUTAMINE. EXPLAINED TO PATIENT ET FAMILY.
--- NOTE | 2021-09-22 13:32 | NUR ---
SS following up with discharge planning. SS reviewed pt chart and discussed with pt RN. Pt is currently requiring oxygen at two and a half liters nasal canula. Pt having heart cath today. Pt on Dobutamine. Cardiology following. No home oxygen. Probable six minute walk needed prior to discharge. SS will continue to follow for discharge planning.
[2021-09-22] MEDS ORDERED: LIDOCAINE 1% Multi-Dose 20 ML VIAL. ONE (13:38)
[2021-09-22] MEDS ORDERED: MIDAZOLAM HCL/PF 2 MG/2 ML VIAL. ONE (14:14)
[2021-09-22] MEDS ORDERED: fentaNYL PF VIAL 100 MCG/2 ML VIAL ONE (14:15)
[2021-09-22] MEDS ORDERED: LIDOCAINE 1% Multi-Dose 20 ML VIAL. INJ ONE (14:30)
[2021-09-22] MEDS ORDERED: MIDAZOLAM HCL/PF 2 MG/2 ML VIAL. IV ONE (14:30)
[2021-09-22] MEDS ORDERED: fentaNYL PF VIAL 100 MCG/2 ML VIAL IV ONE (14:30)
--- NOTE | 2021-09-22 16:35 | CARD ---
MR#: [id number] Date of Study: 09/22/2021 Ordering Physician: MIGUELINA STOREY, Referring Physician: MIGUELINA STOREY, Tech: ZARIA ODEN APPROVED REPORT Technologist: ZARIA ODEN Nurse: Dimple Le RN Procedure(s) performed: MODERATE SEDATION TIME: 19 MINUTES FLUORO TIME: 0.2 MIN DOSE: 0.5 GYCM2 [facility] INDICATION The indication(s) include : dyspnea. Heart Failure Heart Failure: Yes CASE TECHNIQUE IV conscious sedation was used throughout procedure with appropriate monitoring and was performed in the presence of a registered nurse who was an independent trained observer other than the physician p erforming the procedure. During this case, Fluoroscopy and no contrast were used for imaging. Specime n(s) Removed: No Estimated Blood loss: 15 cc's. PROCEDURE NARRATIVE Clinical information: 76-year-old woman with renal sufficiency and heart failure presents to the Processing Tech for delineation o f filling pressures. Procedure details: After appropriate informed consent the right neck was prepped and draped in usual sterile fashion. U nder 1% lidocaine local anesthesia a 5 Cameroonian sheath was placed in the right internal jugular vein vi a ultrasound and fluoroscopic guidance. Next a 5 Cameroonian PA catheter was advanced the right heart jonah mbers and pressures and saturations were obtained. At case completion the catheters and sheaths were removed and hemostasis was achieved via manual compression. Findings: RA 6 mmHg RV 38/3/13 PA 42/14/24 Wedge 13 mmHg FA saturation 93% PA saturation 54% Madhavi cardiac output 2.9 L/min Madhavi cardiac index 1.66 Conclusion 1. Normal biventricular filling pressures 2. No evidence of pulmonary hypertension 3. Low cardiac output Recommendations 1. Continue dobutamine. May need referral for advanced heart failure therapy through [facility] ter. Signed by : Khurram Hurtado, Electronically Approved : 09/22/2021 16:34:15
--- NOTE | 2021-09-22 20:09 | NUR ---
pt bp 76/36, asymptomatic, dobutamine placed on hold, dr varela notified, new orders given to decrease rate half , if bp remains in the 70's d/c dobutamine. will cont to monitor pt status and safety. pmrn
[2021-09-22] MEDS: ATORVASTATIN CALCIUM 40 MG TABLET. PO SCH (22:07)
[2021-09-22] MEDS: ACETAMINOPHEN 325 MG TABLET. PO PRN (22:14)
[2021-09-22] MEDS: MIRTAZAPINE 15 MG TABLET PO SCH (22:15)
[2021-09-23] VITALS (18 sets, daily range): BP systolic 86–118; BP diastolic 41–57
[2021-09-23 04:51] LABS: CALCIUM 8.5 mg/dL (8.5-10.1); GFR 15.1; MAGNESIUM 2.2 mg/dL (1.8-2.4); POTASSIUM 4.7 mmol/L (3.5-5.1)
[2021-09-23] MEDS: HEPARIN for SUB-Q USE 5,000 UNIT/ML VIAL. SQ SCH ×3 (06:00→20:22)
[2021-09-23] MEDS: CARVEDILOL 12.5 MG TABLET. PO SCH ×2 (08:09→16:05)
[2021-09-23] MEDS: ASPIRIN CHEWABLE 81 MG TABLET. PO SCH (08:09)
[2021-09-23] MEDS: AMIODARONE HCL 200 MG TABLET. PO SCH (08:09)
[2021-09-23] MEDS: SENNOSIDES/DOCUSATE 8.6/50MG TABLET. PO SCH ×2 (08:09→20:22)
[2021-09-23] MEDS: SPIRONOLACTONE 25 MG TABLET PO SCH (08:10)
[2021-09-23] MEDS: ACETAMINOPHEN 325 MG TABLET. PO PRN (08:10)
--- NOTE | 2021-09-23 09:55 | PDOC ---
[facility] [facility] PROGRESS NOTE Date of Service DOS: DATE: 09/23/21 TIME: 09:51 Chief Complaint Chief Complaint Shortness of breath -negative COVID-19. She said a cough for some time but not significantly productive clear frothy sputum. Likely this is acute CHF Acute combined CHF -will dibroe. Consult cardiology for further assistance Acute respiratory failure with hypoxia -due to acute CHF exacerbation most likely will less likely pneumonia given bilateral changes in bilateral adventitious breath sounds Cardiomyopathy S/p AICD - no discharges per patient History of Present Illness History of Present Illness Ms Bonilla is a 76-year-old female with past medical history significant for CAD, CHF, hypercholesteremia and hypertension who presents to the emergency department with a chief complaint of shortness of breath for about the last 3 days more than usual. States she has had some dyspnea on exertion, and orthopnea and has had to sleep sitting up. States that she is probably gained a few pounds over the last week. Does not feel as if she is having any swelling or edema. States she is making urine and stool normally for her with no blood in either. States she is taking all her medications as prescribed. States she has had all of her COVID vaccinations and denies any known ill contacts. Denies any recent travels, fevers, chest pain, nausea, vomiting, abdominal pain. 09/20: COVID-19 negative. O2 saturations 96% on 5 L/min nasal cannula. Patient little better able to lay more flat. She was unable to get up to the commode is wearing an adult diaper to urinate. Feels little weak but overall feels her shortness of breath is little improved. Note she was recently switched to furosemide 3 times per week and her Aldactone has been reduced by 75%. 09/21: Had some shortness of breath overnight. CXR with some interstitial changes today. She is feeling depressed. Didn't sleep well. Plan for RHC in AM after ech o revealed LV ejection fraction is estimated 25% and severe global hypokinesis of the left ventricle. 09/22: Blood pressure and symptoms improved on dobutamine infusion and continue diuresis. Still short of breath but is able to lay more flat. Very anxious. She is n.p.o. for right heart cath today still requiring 3 L nasal cannula oxygen. Previously has had oxygen but only when she had pneumonia. She is euvolemic after right heart cath biventricular filling pressures normal no evidence of pulmonary hypertension just severe cardiomyopathy, will need a 6- minute walk and likely referral to advanced heart failure clinic. Discussed with bedside. 09/23: Off dobutamine overnight. She is complaining of extreme bilateral foot pain. Hyperesthetic especially at left ankle. Will check uric acid start steroids for likely gout flare. Still on O2. Not able to get up to walk for 6- minute walk test. Shortness of breath and chest pain improved creatinine increased to 3. Vitals/I&O Vitals/I&O: Vital Signs Date Time Temp Pulse Resp B/P (MAP) Pulse Ox O2 Delivery O2 Flow Rate FiO2 09/23/21 08:09 60 112/48 09/23/21 07:54 Nasal Cannula 2.0 09/23/21 07:00 97.6 19 94 97.6 I & O 09/22/21 09/22/21 09/23/21 15:00 23:00 07:00 Intake Total 0 ml 380 ml 50 ml Output Total 300 ml Balance 0 ml 380 ml -250 ml Physical Exam General: Alert, Oriented X3, Cooperative, No acute distress Heart: Regular rate Lungs: Crackles (bibasilar) Abdomen: Soft, No tenderness Extremities: No edema Skin: No significant lesion Labs Labs: Laboratory Tests Test 09/23/21 04:00 Sodium Level 139 mmol/L (136-145) Potassium Level 4.7 mmol/L (3.5-5.1) Chloride Level 106 mmol/L (98-107) Carbon Dioxide Level 21 mmol/L (21-32) Anion Gap 12 (6-14) Blood Urea Nitrogen 49 mg/dL (7-20) Creatinine 3.0 mg/dL (0.6-1.0) Estimated GFR (Cockcroft-Gault) 15.1 Glucose Level 121 mg/dL (70-99) Calcium Level 8.5 mg/dL (8.5-10.1) Magnesium Level 2.2 mg/dL (1.8-2.4) Comment Review of Relevant I have reviewed the following items poli (where applicable) has been applied. Medications: Current Medications Medications (Trade) Dose Ordered Sig/Koby Route PRN Reason Start Time Stop Time Status Last Admin Dose Admin Heparin Sodium/ Sodium Chloride (HEPARIN for ARTERIAL LINE FLUSH) 1,000 unit 1X ONCE IART 09/22/21 14:30 09/22/21 14:42 DC 09/22/21 14:30 Midazolam HCl (Versed) 1 mg 1X ONCE IV 09/22/21 14:30 09/22/21 14:42 DC 09/22/21 14:15 Fentanyl Citrate (Fentanyl 2ml Vial) 50 mcg 1X ONCE IV 09/22/21 14:30 09/22/21 14:42 DC 09/22/21 14:15 Lidocaine HCl (Lidocaine 1% 20ml Vial) 4 ml 1X ONCE INJ 09/22/21 14:30 09/22/21 14:42 DC 09/22/21 14:15 Justifications for Admission Other Justification MARYJANE SERVIN MD Sep 23, 2021 09:55
[2021-09-23] MEDS ORDERED: methylPREDNISolone SOD SUCC PF 125 MG/2 ML VIAL. IV ONE (10:00)
[2021-09-23] MEDS ORDERED: PRED20TA PO (13:34)
--- NOTE | 2021-09-23 13:51 | PDOC ---
LEAH PICHARDO FLAT BED OPERATOR 09/23/21 1351: CARDIO Progress Notes Date and Time Date of Service 09/23/2021 Time of Evaluation 1110 Subjective Subjective: No Chest Pain, No Palpitations, Other (SO better) Vitals Vitals Vital Signs Date Time Temp Pulse Resp B/P (MAP) Pulse Ox O2 Delivery O2 Flow Rate FiO2 09/23/21 11:00 97.8 61 18 96/49 (65) 97 Nasal Cannula 2.0 97.8 Weight Weight [ ] Input and Output Intake and Output Intake and Output 09/23/21 07:00 Intake Total 430 ml Output Total 300 ml Balance 130 ml Intake Oral 430 ml Output Urine Total 300 ml # Voids 1 Laboratory Labs Laboratory Tests Test 09/23/21 04:00 Sodium Level 139 mmol/L (136-145) Potassium Level 4.7 mmol/L (3.5-5.1) Chloride Level 106 mmol/L (98-107) Carbon Dioxide Level 21 mmol/L (21-32) Anion Gap 12 (6-14) Blood Urea Nitrogen 49 mg/dL (7-20) Creatinine 3.0 mg/dL (0.6-1.0) Estimated GFR (Cockcroft-Gault) 15.1 Glucose Level 121 mg/dL (70-99) Uric Acid 8.8 mg/dL (2.6-6.0) Calcium Level 8.5 mg/dL (8.5-10.1) Magnesium Level 2.2 mg/dL (1.8-2.4) Microbiology Micro Microbiology 09/20/21 Urine Culture - Final, Complete Sultana Tropicalis Lactobacillus Species Physical Exam HEENT: Neck Supple W Full Motion Chest: Symmetric LUNGS: Other (diminished bases) Heart: RRR (a-paced ) Abdomen: Soft N/T Extremities: No Edema Neurology: alert, oriented, follow commands Assessment Assessment 1. Acute on chronic systolic CHF: better 2. Ischemic Cardiomyopathy s/p AICD ([employer]tr[employer]). Last echo noted per [facility] records was in 2012 with an EF 38%. Echo this admission with LVEF 25% 3. CAD s/p PCI/stent to ramus in 2010. with known occluded LAD and circumflex, collaterals from RCA. Managed medically. Follows with Dr. Noé BENNETT 4. KORY on CKD; Cr up to 3 5. Hypertension; low end 6. Hyperlipidemia; statin 7. H/o VF arrest; on Amiodarone therapy for rhythm maintenance. s/p AICD 8. Large ascending aortic saccular aneurysm; patient has declined any re- attempt at surgical intervention. Her previous heart catheterization was associated with an acute CVA 9. H/o CVA 10. Cardiogenic shock Recommendations Hold ARB RHC revealed normal biventricular filling pressures but with low cardiac outpt. Will consider IV bolus and start on milrinone instead of dobutamine. STrict I & O Discussed 2 Gm Na diet, 2000cc FR, and daily weight monitoring. Secondary prevention 6 min walk prior to DC Justicifation of Admission Dx: Justifications for Admission: Justification of Admission Dx: Yes ANA MARÍA MG MD 09/23/21 1718: CARDIO Progress Notes Plan Plan Patient seen and examined. I agree with above nurse practitioner note. Plan for intravenous fluids and continue dobutamine. Supportive care for now LEAH PICHARDO APRN Sep 23, 2021 13:51 ANA MARÍA MG MD Sep 23, 2021 17:18
[2021-09-23] MEDS ORDERED: IV NORMAL SALINE 250ML 250 ML IV ONE (14:00)
[2021-09-23] MEDS ORDERED: traMADol 50 MG TABLET PO PRN (14:00)
[2021-09-23] MEDS ORDERED: LIDOCAINE WITH 8.4% SOD BICARB 3 ML DISP.SYRIN. ONE (14:28)
[2021-09-23] MEDS ORDERED: LIDOCAINE WITH 8.4% SOD BICARB 3 ML DISP.SYRIN. INJ ONE (15:15)
[2021-09-23] MEDS: DICLOFENAC SODIUM 1% TOPICAL GEL 100GM TUBE. TP SCH ×2 (15:27→21:00)
--- NOTE | 2021-09-23 15:30 | RAD ---
Date: 09/23/2021 Exam: Fluoroscopic and ultrasound guided peripheral central venous catheter placement. Indication: Consent: The procedure was explained in its entirety to the patient or the patients designated repres entative by a member of the treatment team, including a discussion of the risks, benefits and commonl y accepted alternatives to the procedure, as well as the expected consequences of no therapy whatsoev er. Discussion of the risks included, but was not limited to, those that are most frequent and thos e that are rare but possibly severe or life-threatening, as well as the possibility of unforeseen com plications. Discussion: A timeout procedure was performed. The patient was prepped and draped using maximum sterile techniq ue, including the use of: Current guideline approved cutaneous antisepsis, a large sterile sheet to e stablish a sterile field. Additionally the lamination machine operator wore a hat, mask, sterile gloves, a sterile gown during the procedure as well as practiced acceptable hand hygiene prior to placing the line. 1% lidoc doyle was administered for local anesthesia. Ultrasound evaluation demonstrates a patent right basilic vein. Reference images were saved in the edical record. The selected vein was accessed using micropuncture technique. A guidewire was advanced centrally. The PICC line was cut to length, and advanced through a peel-away sheath such that it's tip resides at the cavoatrial junction. The peel-away sheath a sheath was removed. The catheter was s ecured in place. The catheter was found to flush and aspirate normally.. Sterile dressings were appli ed. No immediate complications were identified. Fluoroscopy time: 0.3 minutes Dose area product: 1 Gycm2 Impression: Successful placement of a right upper extremity PICC line Electronically signed by: Quinten Rose MD (09/23/2021 3:27 PM) [id number]
[2021-09-23] MEDS: MILRINONE 20MG/100ML PREMIX 100 ML IV PRN (15:31)
[2021-09-23] MEDS: MIRTAZAPINE 15 MG TABLET PO SCH (20:22)
[2021-09-23] MEDS: ATORVASTATIN CALCIUM 40 MG TABLET. PO SCH (20:22)
[2021-09-24] VITALS (8 sets, daily range): BP systolic 93–152; BP diastolic 46–64
[2021-09-24] MEDS: HEPARIN for SUB-Q USE 5,000 UNIT/ML VIAL. SQ SCH ×3 (06:24→20:53)
[2021-09-24] MEDS: SENNOSIDES/DOCUSATE 8.6/50MG TABLET. PO SCH ×2 (08:37→20:56)
[2021-09-24] MEDS: ASPIRIN CHEWABLE 81 MG TABLET. PO SCH (08:38)
[2021-09-24] MEDS: AMIODARONE HCL 200 MG TABLET. PO SCH (08:39)
[2021-09-24] MEDS: DICLOFENAC SODIUM 1% TOPICAL GEL 100GM TUBE. TP SCH ×2 (08:41→20:59)
[2021-09-24] MEDS: FUROSEMIDE 40 MG TABLET. PO SCH (09:00)
[2021-09-24] MEDS: CARVEDILOL 12.5 MG TABLET. PO SCH ×2 (11:20→17:47)
[2021-09-24] MEDS ORDERED: MAGNESIUM SULFATE 2GM 50 ML IV PRN ×2 (11:45→12:00)
--- NOTE | 2021-09-24 12:01 | PDOC2 ---
CONSULT Date of Consult Date of Consult DATE: 09/24/21 TIME: 11:45 Reason for Consult Reason for Consult: CKD, KORY, CHF Referring Physician Referring Physician: Venu Identification/Chief Complaint Chief Complaint Shortness of breath, orthopnea Source Source: Chart review, Patient History of Present Illness Reason for Visit: Patient is a 76-year-old female with known history of coronary artery disease dating back to 2010 When she had her first NM. She is followed by Dr. Umanzor out of [facility]. She is known to have a history of CKD for the last 3 to 4 years but she does not know her baseline GFR or creatinine per se. She has never seen a display designer outside before. She claims Dr. Umanzor has told her that her kidneys are not normal. She has no difficulty urinating per se at this time. Patient developed worsening shortness of breath orthopnea and PND and presented to [facility] for further evaluation. She was noted to have an EF of 25% and underwent coronary angiography. Presented with creatinine of 2.3 which came down to 1.8 is now up to 3.0. Patient is unable to get to a bedside commode and hence urine output is not well documented. She currently declines a pure wick or a Lyon catheter. We discussed the importance of I's and O monitoring in the setting of ongoing diuresis and worsening kidney function despite being on milrinone drip Past Medical History Cardiovascular: CAD, CHF, HTN, Hyperlipidemia, Other (aortic aneurysm, NSVT, v- fib arrest ) CENTRAL NERVOUS SYSTEM: CVA Musculoskeletal: Osteoarthritis Renal/: Chronic renal insuff Past Surgical History Past Surgical History: Pacemaker (ACID ), Cataract Removal, Hysterectomy Family History Family History Noncontributory for kidney disease Family History: Heart Disease Social History Quit ALCOHOL: occassional Drugs: None Lives: with Family Current Medications Current Medications Current Medications Influenza Virus Vaccine Quadrival (Flulaval Quad Syringe) 0.5 ml ONCE ONCE VAX IM ; Start 09/19/21 at 16:00; Stop 09/19/21 at 16:01; Status UNV Ondansetron HCl (Zofran) 4 mg PRN Q6HRS PRN IVP NAUSEA/VOMITING Last administered on 09/22/21at 11:38; Start 09/19/21 at 16:45 Calcium Carbonate/ Glycine (Tums) 500 mg PRN Q3HRS PRN PO UPSET STOMACH; Start 09/19/21 at 16:45 Info (Non-Icu Electrolyte Protocol) 1 ea PRN DAILY PRN MC SEE COMMENTS; Start 09/19/21 at 16:45 Acetaminophen (Tylenol) 650 mg PRN Q6HRS PRN PO Headaches, Temp > 101.5F Last administered on 09/23/21 08:10; Start 09/19/21 at 16:45 Senna/Docusate Sodium (Senna Plus) 1 tab BID PO Last administered on 09/24/21 08:37; Start 09/19/21 at 21:00 Heparin Sodium (Porcine) (Heparin Sodium) 5,000 unit Q8HRS SQ Last administered on 09/24/21 06:24; Start 09/19/21 at 22:00 Aspirin (Aspirin Chewable) 81 mg DAILY PO Last administered on 09/24/21 08:38; Start 09/19/21 at 18:00 Furosemide (Lasix) 40 mg QODAY PO Last administered on 09/22/21at 07:45; Start 09/20/21 at 09:00 Nitroglycerin (Nitrostat) 0.4 mg PRN Q5MIN PRN SL CHEST PAIN; Start 09/19/21 at 17:00 Atorvastatin Calcium (Lipitor) 80 mg QHS PO Last administered on 09/23/21 20:22; Start 09/19/21 at 21:00 Carvedilol (Coreg) 12.5 mg BIDWMEALS PO Last administered on 09/24/21 11:20; Start 09/19/21 at 17:00 Losartan Potassium (Cozaar) 100 mg DAILY PO Last administered on 09/19/21at 18:52; Start 09/19/21 at 18:00; Stop 09/20/21 at 17:00; Status DC Spironolactone (Aldactone) 50 mg DAILY PO Last administered on 09/23/21 08:10; Start 09/20/21 at 09:00 Albumin Human 100 ml @ 100 mls/hr 1X ONCE IV Last administered on 09/20/21 06:04; Start 09/20/21 at 05:00; Stop 09/20/21 at 05:59; Status DC Amiodarone HCl (Cordarone) 200 mg DAILY PO Last administered on 09/24/21at 08:39; Start 09/20/21 at 09:00 Dobutamine HCl/ Dextrose 250 ml @ 11.505 mls/ hr CONT PRN IV SEE I/O RECORD Last administered on 09/22/21at 14:54; Start 09/21/21 at 14:15 Mirtazapine (Remeron) 15 mg QHS PO Last administered on 09/23/21at 20:22; Start 09/21/21 at 21:00 Lidocaine HCl (Lidocaine 1% 20ml Vial) 20 ml STK-MED ONCE .ROUTE ; Start 09/22/21 at 13:38; Stop 09/22/21 at 13:38; Status DC Heparin Sodium/ Sodium Chloride 500 ml @ As Directed STK-MED ONCE .ROUTE ; Start 09/22/21 at 13:38; Stop 09/22/21 at 13:38; Status DC Midazolam HCl (Versed) 2 mg STK-MED ONCE .ROUTE ; Start 09/22/21 at 14:14; Stop 09/22/21 at 14:15; Status DC Fentanyl Citrate (Fentanyl 2ml Vial) 100 mcg STK-MED ONCE .ROUTE ; Start 09/22/21 at 14:15; Stop 09/22/21 at 14:15; Status DC Heparin Sodium/ Sodium Chloride (HEPARIN for ARTERIAL LINE FLUSH) 1,000 unit 1X ONCE IART Last administered on 09/22/21at 14:30; Start 09/22/21 at 14:30; Stop 09/22/21 at 14:42; Status DC Midazolam HCl (Versed) 1 mg 1X ONCE IV Last administered on 09/22/21at 14:15; Start 09/22/21 at 14:30; Stop 09/22/21 at 14:42; Status DC Fentanyl Citrate (Fentanyl 2ml Vial) 50 mcg 1X ONCE IV Last administered on 09/22/21at 14:15; Start 09/22/21 at 14:30; Stop 09/22/21 at 14:42; Status DC Lidocaine HCl (Lidocaine 1% 20ml Vial) 4 ml 1X ONCE INJ Last administered on 09/22/21at 14:15; Start 09/22/21 at 14:30; Stop 09/22/21 at 14:42; Status DC Methylprednisolone Sodium Succinate (SOLU-Medrol 125MG VIAL) 125 mg 1X ONCE IV Last administered on 09/23/21at 10:00; Start 09/23/21 at 10:00; Stop 09/23/21 at 10:01; Status DC Sodium Chloride 250 ml @ 250 mls/hr 1X ONCE IV Last administered on 09/23/21at 15:27; Start 09/23/21 at 14:00; Stop 09/23/21 at 14:59; Status DC Milrinone Lactate/ Dextrose 100 ml @ 2.903 mls/ hr CONT PRN IV SEE I/O RECORD Last administered on 09/23/21at 15:31; Start 09/23/21 at 14:00 Diclofenac Sodium (Voltaren) 1 jamee BID TP Last administered on 09/24/21at 08:41; Start 09/23/21 at 14:30 Tramadol HCl (Ultram) 50 mg PRN Q6HRS PRN PO PAIN; Start 09/23/21 at 14:00 Lidocaine HCl (Buffered Lidocaine 1%) 3 ml STK-MED ONCE .ROUTE ; Start 09/23/21 at 14:28; Stop 09/23/21 at 14:28; Status DC Lidocaine HCl (Buffered Lidocaine 1%) 6 ml 1X ONCE INJ ; Start 09/23/21 at 1 5:15; Stop 09/23/21 at 15:16; Status DC Active Scripts Active Prednisone 20 Mg Tablet 2 Tab PO DAILY 4 Days Reported NITROGLYCERIN SubLingual (Nitroglycerin) 0.4 Mg Tab.subl 0.4 Mg SL PRN Q5MIN PRN Spironolactone 50 Mg Tablet 1 Tab PO DAILY Lasix (Furosemide) 40 Mg Tablet 1 Tab PO QODAY 30 Days Carvedilol 25 Mg Tablet 12.5 Mg PO HS Atorvastatin Calcium 80 Mg Tablet 80 Mg PO QHS Aspirin 81 Mg Tab.chew 1 Tab PO DAILY Amiodarone Hcl 200 Mg Tablet 1 Tab PO DAILY Allergies Allergies: Coded Allergies: codeine (Verified Allergy, Intermediate, 09/19/21) morphine (Verified Allergy, Intermediate, 09/19/21) ROS Review of System 14 point review of systems reviewed, positives are under HPI is otherwise negative Physical Exam Physical Exam General Appearance: [ ] Awake Alert Oriented x 3 In no Distress Eyes: VIsion Unchanged Conjunctiva Normal EN: No EN Drainage Mucous Memb. moist Neck: no JVD min JVP Supple no Thyromegaly CVS: S1 S2 soft Murmur No Gallop No Rub no Edema Resp: no Rales no Rhonchi no Acc. Muscle use GI: BAS +ve NO Bruit Non Tender Non Distended : no CVA tenderness; no Suprapubic Tenderness SKIN: no Rashes Breast Exam deferred Mu.Sk: Adequate ROM no Muscle Atrophy Heme: Unable to palpate Obvious LAD no Splenomegaly NEURO: Good Strength and Tone Cranial Nerves II - XII grossly intact Psych: not Depressed no Active hallucination Vital Signs Vital Signs Date Time Temp Pulse Resp B/P (MAP) Pulse Ox O2 Delivery O2 Flow Rate FiO2 09/24/21 11:20 59 110/49 09/24/21 08:00 Nasal Cannula 2.5 09/24/21 07:00 97.4 81 97.4 09/24/21 03:00 18 Assessment & Plan Acute kidney injury: Creatinine has increased from 2.3 at presentation to 3.0. ATN associated with contrast nephropathy cannot be ruled out. Patient has declined pelvic or Lyon catheter placement at this time. Current FLuid and E-lyte status does not necessitate emergent need for Dialysis. Decompensated cardiomyopathy may be contributing also Severe cardiomyopathy with decompensation now status post left heart cath. She is known to be on inotropes per cardiology at this time. Will check chest x-ray and hold diuretics if she is not felt to have worsening of her respiratory status. 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 at length with family at bedside Labs Labs Laboratory Tests Test 09/23/21 04:00 Sodium Level 139 mmol/L (136-145) Potassium Level 4.7 mmol/L (3.5-5.1) Chloride Level 106 mmol/L (98-107) Carbon Dioxide Level 21 mmol/L (21-32) Anion Gap 12 (6-14) Blood Urea Nitrogen 49 mg/dL (7-20) Creatinine 3.0 mg/dL (0.6-1.0) Estimated GFR (Cockcroft-Gault) 15.1 Glucose Level 121 mg/dL (70-99) Uric Acid 8.8 mg/dL (2.6-6.0) Calcium Level 8.5 mg/dL (8.5-10.1) Magnesium Level 2.2 mg/dL (1.8-2.4) Review All relevant outside records, renal labs, imaging studies, telemetry/EKG's were reviewed. Images Images The Left Ventricle is borderline dilated. The LV systolic function is severely impaired. LV ejection fraction is estimated 25%. There is severe global hypokinesis of the left ventricle. There is mild concentric left ventricular hypertrophy. Doppler and Color Flow revealed trace aortic regurgitation. There is no significant aortic valvular stenosis. Doppler and Color-flow revealed mild to moderate mitral regurgitation. Doppler and Color Flow revealed mild tricuspid regurgitation. Estimated PAP 38- 40 mmHg. PABLO HUNTER MD Sep 24, 2021 12:01
[2021-09-24] MEDS: SPIRONOLACTONE 25 MG TABLET PO SCH (12:05)
--- NOTE | 2021-09-24 12:55 | PDOC ---
[employer] PROGRESS NOTE Date of Service DOS: DATE: 09/24/21 TIME: 12:29 Chief Complaint Chief Complaint Shortness of breath -negative COVID-19. She said a cough for some time but not significantly productive clear frothy sputum. Likely this is acute CHF Acute combined CHF -will dibroe. Consult cardiology for further assistance Acute respiratory failure with hypoxia -due to acute CHF exacerbation most likely will less likely pneumonia given bilateral changes in bilateral adventitious breath sounds Cardiomyopathy S/p AICD - no discharges per patient History of Present Illness History of Present Illness Ms Bonilla is a 76-year-old female with past medical history significant for CAD, CHF, hypercholesteremia and hypertension who presents to the emergency department with a chief complaint of shortness of breath for about the last 3 days more than usual. States she has had some dyspnea on exertion, and orthopnea and has had to sleep sitting up. States that she is probably gained a few pounds over the last week. Does not feel as if she is having any swelling or edema. States she is making urine and stool normally for her with no blood in either. States she is taking all her medications as prescribed. States she has had all of her COVID vaccinations and denies any known ill contacts. Denies any recent travels, fevers, chest pain, nausea, vomiting, abdominal pain. 09/20: COVID-19 negative. O2 saturations 96% on 5 L/min nasal cannula. Patient little better able to lay more flat. She was unable to get up to the commode is wearing an adult diaper to urinate. Feels little weak but overall feels her shortness of breath is little improved. Note she was recently switched to furosemide 3 times per week and her Aldactone has been reduced by 75%. 09/21: Had some shortness of breath overnight. CXR with some interstitial changes today. She is feeling depressed. Didn't sleep well. Plan for RHC in AM after ech o revealed LV ejection fraction is estimated 25% and severe global hypokinesis of the left ventricle. 09/22: Blood pressure and symptoms improved on dobutamine infusion and continue diuresis. Still short of breath but is able to lay more flat. Very anxious. She is n.p.o. for right heart cath today still requiring 3 L nasal cannula oxygen. Previously has had oxygen but only when she had pneumonia. She is euvolemic after right heart cath biventricular filling pressures normal no evidence of pulmonary hypertension just severe cardiomyopathy, will need a 6- minute walk and likely referral to advanced heart failure clinic. Discussed with bedside. 09/23: Off dobutamine. C/o extreme bilateral foot pain. Hyperesthetic especially at left ankle. Will check uric acid start steroids for likely gout flare. Still on O2. Not able to get up to walk for 6-minute walk test. Shortness of breath and chest pain improved creatinine increased to 3. 09/24: PICC placed for milrinone gtt. Overall she feels a little depressed but she did sleep 4 hours last night. Has family visiting bedside. She understands the severity of her CHF. All questions answered. Bilateral foot pain improved. Has been able to stand her foot Vitals/I&O Vitals/I&O: Vital Signs Date Time Temp Pulse Resp B/P (MAP) Pulse Ox O2 Delivery O2 Flow Rate FiO2 09/24/21 11:20 59 110/49 09/24/21 08:00 Nasal Cannula 2.5 09/24/21 07:00 97.4 81 97.4 09/24/21 03:00 18 I & O 09/23/21 09/23/21 09/24/21 15:00 23:00 07:00 Intake Total 480 ml 530 ml 234.8 ml Balance 480 ml 530 ml 234.8 ml Physical Exam General: Alert, Oriented X3, Cooperative, No acute distress Heart: Regular rate Lungs: Crackles (bibasilar) Abdomen: Soft, No tenderness Extremities: No edema Skin: No significant lesion Comment Review of Relevant I have reviewed the following items poli (where applicable) has been applied. Medications: Current Medications Medications (Trade) Dose Ordered Sig/Koby Route PRN Reason Start Time Stop Time Status Last Admin Dose Admin Sodium Chloride 250 ml @ 250 mls/hr 1X ONCE IV 09/23/21 14:00 09/23/21 14:59 DC 09/23/21 15:27 Milrinone Lactate/ Dextrose 100 ml @ 2.903 mls/ hr CONT PRN IV SEE I/O RECORD 09/23/21 14:00 09/23/21 15:31 Diclofenac Sodium (Voltaren) 1 jamee BID TP 09/23/21 14:30 09/24/21 08:41 Justifications for Admission Other Justification MARYJANE SERVIN MD Sep 24, 2021 12:55
[2021-09-24] MEDS: predniSONE 20 MG TABLET PO SCH (13:58)
--- NOTE | 2021-09-24 14:48 | RAD ---
EXAMINATION: Chest radiograph. VIEWS: Single AP view of the chest COMPARISON: None INDICATION:76 years, Female, shortness of breath. FINDINGS: Poor inspiratory effort. Right upper extremity PICC with tip terminating in the mid SVC. Left chest c ardiac pacing device appears normal. Cardiac silhouette is mildly enlarged with mild pulmonary vascul ar congestion. Patchy right infrahilar opacities. No pleural effusion or pneumothorax. No acute osse ous process. IMPRESSION: Mild cardiomegaly with pulmonary vascular congestion. Patchy right basilar opacities may represent pu lmonary edema and/or infiltrate Electronically signed by: Aroldo Givens DO (09/24/2021 2:46 PM) [facility]
--- NOTE | 2021-09-24 14:53 | PDOC ---
CARDIOLOGY PROGRESS NOTE SUBJECTIVE: No acute events overnight. She reports feeling slightly better. Denies any chest pain. Has not ambulated well. OBJECTIVE: Vital Signs/I&O: Vital Signs Date Time Temp Pulse Resp B/P (MAP) Pulse Ox O2 Delivery O2 Flow Rate FiO2 09/24/21 11:20 59 110/49 09/24/21 11:00 97.4 95 97.4 09/24/21 08:00 Nasal Cannula 2.5 09/24/21 03:00 18 I & O 09/23/21 09/23/21 09/24/21 15:00 23:00 07:00 Intake Total 480 ml 530 ml 234.8 ml Balance 480 ml 530 ml 234.8 ml Objective: GEN.: No apparent distress. Alert and oriented. HEENT: Head is normocephalic, atraumatic NECK: Supple. LUNGS: Clear to auscultation. HEART: RRR, S1, S2 present. Peripheral pulses intact ABDOMEN: Soft, nontender. Positive bowel sounds. EXTREMITIES: Without any cyanosis. NEUROLOGIC: Normal speech, normal tone PSYCHIATRIC: Normal affect, normal mood. SKIN: No ulcerations CURRENT MEDICATIONS: Coreg, ASA, Atorvastatin, Nelson, Milrinone. DIAGNOSTIC TESTING: Awaiting labs. CXR reviewed. ASSESSMENT: 1. Ischemic CMP and cardiorenal syndrome. 2. cardiogenic shock. 3. KORY on CKD PLAN: 1. Continue milrinone 2. Supportive care for now. 3. I do not believe the patient's coreg, dobutamine, milrinone have caused any gouty attacks. Suspect it is mostly the KORY and diuretics she was given for her HF. Agree with prednisone per Dr. Lea. Discussed with family at bedside. Justicifation of Admission Dx: Justifications for Admission: Justification of Admission Dx: Yes ANA MARÍA MG MD Sep 24, 2021 14:53
--- NOTE | 2021-09-24 15:50 | RAD ---
EXAM: RENAL ULTRASOUND 09/24/2021 CLINICAL HISTORY: Acute renal failure . COMPARISON: None available. TECHNIQUE: Ultrasound examination of the bilateral kidneys and urinary bladder was performed. FINDINGS: Right kidney measures 9.6 cm in length. Left kidney measures 10.9 cm in length. No hydronephrosis. David th kidneys are echogenic. There is a small cyst at the left kidney measuring about 1.1 cm. Urinary bl adder unremarkable. IMPRESSION: 1. Echogenic kidneys consistent with medical renal disease. No hydronephrosis. Electronically signed by: Yonis Sandoval MD (09/24/2021 3:47 PM) [id number]
--- NOTE | 2021-09-24 16:20 | NUR ---
Patient refusing caballero catheter & purewick. Dr. Márquez aware. Monitoring output with hat in bedside commode.
[2021-09-24] MEDS: MILRINONE 20MG/100ML PREMIX 100 ML IV PRN (16:39)
[2021-09-24] MEDS: ATORVASTATIN CALCIUM 40 MG TABLET. PO SCH (20:53)
[2021-09-24] MEDS: MIRTAZAPINE 15 MG TABLET PO SCH (20:56)
[2021-09-25] VITALS (13 sets, daily range): BP systolic 85–141; BP diastolic 45–66
[2021-09-25 04:03] LABS: ALBUMIN 2.5 g/dL (3.4-5.0); CALCIUM 8.7 mg/dL (8.5-10.1); CREATININE 2.5 mg/dL (0.6-1.0); GFR 18.6; PHOSPHORUS 3.7 mg/dL (2.6-4.7); POTASSIUM 5.5 mmol/L (3.5-5.1)
[2021-09-25] MEDS: HEPARIN for SUB-Q USE 5,000 UNIT/ML VIAL. SQ SCH ×3 (05:53→20:25)
[2021-09-25] MEDS: ASPIRIN CHEWABLE 81 MG TABLET. PO SCH (08:52)
[2021-09-25] MEDS: SENNOSIDES/DOCUSATE 8.6/50MG TABLET. PO SCH ×2 (08:52→20:23)
[2021-09-25] MEDS: predniSONE 20 MG TABLET PO SCH (08:52)
[2021-09-25] MEDS: CARVEDILOL 12.5 MG TABLET. PO SCH ×2 (08:53→18:40)
[2021-09-25] MEDS: AMIODARONE HCL 200 MG TABLET. PO SCH (08:53)
[2021-09-25] MEDS: DICLOFENAC SODIUM 1% TOPICAL GEL 100GM TUBE. TP SCH ×2 (08:55→20:24)
--- NOTE | 2021-09-25 11:55 | PDOC ---
CARDIOLOGY PROGRESS NOTE SUBJECTIVE: No new issues. Reports that feet are feeling better. OBJECTIVE: Vital Signs/I&O: Vital Signs Date Time Temp Pulse Resp B/P (MAP) Pulse Ox O2 Delivery O2 Flow Rate FiO2 09/25/21 11:00 97.5 60 18 85/49 (61) 94 Nasal Cannula 2.0 97.5 I & O 09/24/21 09/24/21 09/25/21 15:00 23:00 07:00 Intake Total 0 ml 50 ml 0 ml Output Total 300 ml Balance 0 ml -250 ml 0 ml Objective: GEN.: No apparent distress. Alert and oriented. HEENT: Head is normocephalic, atraumatic NECK: Supple. LUNGS: Clear to auscultation. HEART: RRR, S1, S2 present. Peripheral pulses intact ABDOMEN: Soft, nontender. Positive bowel sounds. EXTREMITIES: Without any cyanosis. NEUROLOGIC: Normal speech, normal tone PSYCHIATRIC: Normal affect, normal mood. SKIN: No ulcerations CURRENT MEDICATIONS: Current Medications Medications (Trade) Dose Ordered Sig/Koby Route PRN Reason Start Time Stop Time Status Last Admin Dose Admin Prednisone (Prednisone) 40 mg DAILY PO 09/24/21 13:00 09/28/21 12:59 09/25/21 08:52 DIAGNOSTIC TESTING: labs reviewed. Cr 2.5, K 5.5 Labs: Laboratory Tests 09/25/21 03:15 Laboratory Tests Test 09/25/21 03:15 Hemoglobin 8.5 g/dL (12.0-15.5) L Sodium Level 138 mmol/L (136-145) Potassium Level 5.5 mmol/L (3.5-5.1) H Chloride Level 108 mmol/L (98-107) H Carbon Dioxide Level 23 mmol/L (21-32) Anion Gap 7 (6-14) Blood Urea Nitrogen 75 mg/dL (7-20) H Creatinine 2.5 mg/dL (0.6-1.0) H Estimated GFR (Cockcroft-Gault) 18.6 Glucose Level 188 mg/dL (70-99) H Calcium Level 8.7 mg/dL (8.5-10.1) Phosphorus Level 3.7 mg/dL (2.6-4.7) Albumin 2.5 g/dL (3.4-5.0) L ASSESSMENT: 1. Ischemic CMP and cardiorenal syndrome. 2. cardiogenic shock. 3. KORY on CKD PLAN: 1. Continue milrinone - likely DC tmrw if stable and Cr improving. 2. Supportive care for now. 3. Continue to hold diuretics for now. 4. Unable to start other GDMT such as entresto, jardiance etc. Supportive care. Justicifation of Admission Dx: Justifications for Admission: Justification of Admission Dx: Yes ANA MARÍA MG MD Sep 25, 2021 11:55
--- NOTE | 2021-09-25 13:43 | PDOC ---
DATE OF SERVICE: DOS: DATE: 09/25/21 TIME: 13:33 SUBJECTIVE ROS Follow-up for acute on chronic renal insufficiency Patient claims she is doing and feeling a little better. She claims she is urinating well overall. CVS: no Orthopnea, no CP RESP: no SOB, no GORDON GI: no Nausea, no Vomiting : no Dysuria, no Urgency OBJECTIVE Vital Signs Vital Signs Date Time Temp Pulse Resp B/P (MAP) Pulse Ox O2 Delivery O2 Flow Rate FiO2 09/25/21 11:00 97.5 60 18 85/49 (61) 94 Nasal Cannula 2.0 97.5 I & 0 Intake and Output 09/25/21 07:00 Intake Total 50 ml Output Total 300 ml Balance -250 ml Intake Oral 50 ml Output Urine Total 300 ml PHYSICAL EXAM Physical Exam GEN: Awake, Oriented x 3, In n distress EYES: Vision Unchanged, Conjunctiva Normal EN: No EN Drainage, Mucous Membranes 3 NECK: + JVD, + JVP, Supple, no Thyromegaly CVS: S1S2, + Murmur, No Gallop, No Rub, + Edema RESP: no Rales, no Rhonchi,no Acc. Muscle Use GI: BS + ve, NO Bruit, Non Tender, Non Distended : no CVA tenderness, no Suprapubic Tenderness DIAGNOSIS/ASSESSMENT Assessment & Plan Acute kidney injury: Creatinine has improved some today . Patient did not receive IV contrast during heart cath procedure. This was discussed with her network lead.. Low blood pressures do make consideration for dialysis somewhat challenging. Current FLuid and E-lyte status does not necessitate emergent need for Dialysis. Decompensated cardiomyopathy may be contributing also to a prerenal state Severe cardiomyopathy with decompensation. She remains on inotropes per cardiology at this time. She was felt to be relatively euvolemic on cath and hence diuretics are held currently. Options regarding outpatient inotropic infusions versus being on a pump and/or long-term dialysis were discussed by cardiology with the family. Based on management of cardiomyopathy, she will be reevaluated for dialysis. Hypotension: We will make dialysis very challenging. May need to pursue peritoneal dialysis if need arises Underlying CKD presumed hypertensive nephrosclerosis with baseline creatinine closer to 2 cannot be ruled out Iron deficiency anemia: IV iron can be administered Discussed Plan of Care and prognosis etc. at length with family at bedside COMMENT/RELEVANT DATA Meds Current Medications Medications (Trade) Dose Ordered Sig/Koby Start Time Stop Time Status Last Admin Dose Admin Acetaminophen (Tylenol) 650 mg PRN Q6HRS PRN 09/19/21 16:45 09/23/21 08:10 650 MG Albumin Human 100 ml @ 100 mls/hr 1X ONCE 09/20/21 05:00 09/20/21 05:59 DC 09/20/21 06:04 100 MLS/HR Amiodarone HCl (Cordarone) 200 mg DAILY 09/20/21 09:00 09/25/21 08:53 200 MG Aspirin (Aspirin Chewable) 81 mg DAILY 09/19/21 18:00 09/25/21 08:52 81 MG Atorvastatin Calcium (Lipitor) 80 mg QHS 09/19/21 21:00 09/24/21 20:53 80 MG Calcium Carbonate/ Glycine (Tums) 500 mg PRN Q3HRS PRN 09/19/21 16:45 Carvedilol (Coreg) 12.5 mg BIDWMEALS 09/19/21 17:00 09/25/21 08:53 12.5 MG Diclofenac Sodium (Voltaren) 1 jamee BID 09/23/21 14:30 09/25/21 08:55 1 JAMEE Dobutamine HCl/ Dextrose 250 ml @ 11.505 mls/ hr CONT PRN 09/21/21 14:15 09/22/21 14:54 11.505 MLS/HR Fentanyl Citrate (Fentanyl 2ml Vial) 50 mcg 1X ONCE 09/22/21 14:30 09/22/21 14:42 DC 09/22/21 14:15 50 MCG Furosemide (Lasix) 40 mg QODAY 09/20/21 09:00 09/22/21 07:45 40 MG Heparin Sodium (Porcine) (Heparin Sodium) 5,000 unit Q8HRS 09/19/21 22:00 09/25/21 05:53 5,000 UNIT Heparin Sodium/ Sodium Chloride (HEPARIN for ARTERIAL LINE FLUSH) 1,000 unit 1X ONCE 09/22/21 14:30 09/22/21 14:42 DC 09/22/21 14:30 1,000 UNIT Influenza Virus Vaccine Quadrival (Flulaval Quad [id number] Syringe) 0.5 ml ONCE ONCE 09/19/21 16:00 09/19/21 16:01 UNV Info (Non-Icu Electrolyte Protocol) 1 ea PRN DAILY PRN 09/19/21 16:45 Lidocaine HCl (Buffered Lidocaine 1%) 6 ml 1X ONCE 09/23/21 15:15 09/23/21 15:16 DC Lidocaine HCl (Lidocaine 1% 20ml Vial) 4 ml 1X ONCE 09/22/21 14:30 09/22/21 14:42 DC 09/22/21 14:15 4 ML Losartan Potassium (Cozaar) 100 mg DAILY 09/19/21 18:00 09/20/21 17:00 DC 09/19/21 18:52 100 MG Magnesium Sulfate 50 ml @ 25 mls/hr PRN DAILY PRN 09/24/21 12:00 Methylprednisolone Sodium Succinate (SOLU-Medrol 125MG VIAL) 125 mg 1X ONCE 09/23/21 10:00 09/23/21 10:01 DC 09/23/21 10:00 125 MG Midazolam HCl (Versed) 1 mg 1X ONCE 09/22/21 14:30 09/22/21 14:42 DC 09/22/21 14:15 1 MG Milrinone Lactate/ Dextrose 100 ml @ 2.903 mls/ hr CONT PRN 09/23/21 14:00 09/24/21 16:39 2.903 MLS/HR Mirtazapine (Remeron) 15 mg QHS 09/21/21 21:00 09/24/21 20:56 15 MG Nitroglycerin (Nitrostat) 0.4 mg PRN Q5MIN PRN 09/19/21 17:00 Ondansetron HCl (Zofran) 4 mg PRN Q6HRS PRN 09/19/21 16:45 09/22/21 11:38 4 MG Prednisone (Prednisone) 40 mg DAILY 09/24/21 13:00 09/28/21 12:59 09/25/21 08:52 40 MG Senna/Docusate Sodium (Senna Plus) 1 tab BID 09/19/21 21:00 09/25/21 08:52 1 TAB Sodium Chloride 250 ml @ 250 mls/hr 1X ONCE 09/23/21 14:00 09/23/21 14:59 DC 09/23/21 15:27 250 MLS/HR Spironolactone (Aldactone) 50 mg DAILY 09/20/21 09:00 09/24/21 14:28 DC 09/24/21 12:05 50 MG Tramadol HCl (Ultram) 50 mg PRN Q6HRS PRN 09/23/21 14:00 Lab Laboratory Tests Test 09/25/21 03:15 Hemoglobin 8.5 g/dL (12.0-15.5) Sodium Level 138 mmol/L (136-145) Potassium Level 5.5 mmol/L (3.5-5.1) Chloride Level 108 mmol/L (98-107) Carbon Dioxide Level 23 mmol/L (21-32) Anion Gap 7 (6-14) Blood Urea Nitrogen 75 mg/dL (7-20) Creatinine 2.5 mg/dL (0.6-1.0) Estimated GFR (Cockcroft-Gault) 18.6 Glucose Level 188 mg/dL (70-99) Calcium Level 8.7 mg/dL (8.5-10.1) Phosphorus Level 3.7 mg/dL (2.6-4.7) Magnesium Level 2.7 mg/dL (1.8-2.4) Albumin 2.5 g/dL (3.4-5.0) Results All relevant outside records, renal labs, imaging studies, telemetry/EKG's were reviewed. Justicifation of Admission Dx: Justifications for Admission: Justification of Admission Dx: Yes PABLO HUNTER MD Sep 25, 2021 13:43
[2021-09-25] MEDS ORDERED: SODIUM POLYSTYRENE SULFON/SORB 15 GM/60 ML ORAL.SUSP. PO ONE (13:45)
--- NOTE | 2021-09-25 14:28 | PDOC ---
[employer] PROGRESS NOTE Date of Service DOS: DATE: 09/25/21 TIME: 14:16 Chief Complaint Chief Complaint Shortness of breath -negative COVID-19. She said a cough for some time but not significantly productive clear frothy sputum. This is acute CHF Acute combined CHF -will zhene. Consult cardiology for further assistance Acute respiratory failure with hypoxia -due to acute CHF exacerbation most likely will less likely pneumonia given bilateral changes in bilateral adventitious breath sounds Cardiomyopathy S/p AICD - no discharges per patient Ankle pain - likely gout, with renal insufficency can only give prednisone Hyperuricemia - treating likely gout flare KORY - on some CKD Hyperkalemia - will monitor History of Present Illness History of Present Illness Ms Bonilla is a 76-year-old female with past medical history significant for CAD, CHF, hypercholesteremia and hypertension who presents to the emergency department with a chief complaint of shortness of breath for about the last 3 days more than usual. States she has had some dyspnea on exertion, and orthopnea and has had to sleep sitting up. States that she is probably gained a few pounds over the last week. Does not feel as if she is having any swelling or edema. States she is making urine and stool normally for her with no blood in either. States she is taking all her medications as prescribed. States she has had all of her COVID vaccinations and denies any known ill contacts. Denies any recent travels, fevers, chest pain, nausea, vomiting, abdominal pain. 09/20: COVID-19 negative. O2 saturations 96% on 5 L/min nasal cannula. Patient little better able to lay more flat. She was unable to get up to the commode is wearing an adult diaper to urinate. Feels little weak but overall feels her shortness of breath is little improved. Note she was recently switched to furosemide 3 times per week and her Aldactone has been reduced by 75%. 09/21: Had some shortness of breath overnight. CXR with some interstitial changes today. She is feeling depressed. Didn't sleep well. Plan for RHC in AM after echo revealed LV ejection fraction is estimated 25% and severe global hypokinesis of the left ventricle. 09/22: Blood pressure and symptoms improved on dobutamine infusion and continue diuresis. Still short of breath but is able to lay more flat. Very anxious. She is n.p.o. for right heart cath today still requiring 3 L nasal cannula oxygen. Previously has had oxygen but only when she had pneumonia. She is euvolemic after right heart cath biventricular filling pressures normal no vignesh dence of pulmonary hypertension just severe cardiomyopathy, will need a 6-minute walk and likely referral to advanced heart failure clinic. Discussed with bedside. 09/23: Off dobutamine. C/o extreme bilateral foot pain. Hyperesthetic especially at left ankle. Will check uric acid start steroids for likely gout flare. Still on O2. Not able to get up to walk for 6-minute walk test. Shortness of breath and chest pain improved creatinine increased to 3. 09/24: PICC placed for milrinone gtt. Overall she feels a little depressed but she did sleep 4 hours last night. Has family visiting bedside. She understands the severity of her CHF. All questions answered. Bilateral foot pain improved. Has been able to stand her foot. 09/25: K5.5, BUN 75, CR 2.5, feet are feeling better. Chest radiograph with cardiomegaly pulmonary vascular congestion and right basilar opacity. Vitals/I&O Vitals/I&O: Vital Signs Date Time Temp Pulse Resp B/P (MAP) Pulse Ox O2 Delivery O2 Flow Rate FiO2 09/25/21 11:00 97.5 60 18 85/49 (61) 94 Nasal Cannula 2.0 97.5 I & O 09/24/21 09/24/21 09/25/21 15:00 23:00 07:00 Intake Total 0 ml 50 ml 0 ml Output Total 300 ml Balance 0 ml -250 ml 0 ml Physical Exam General: Alert, Oriented X3, Cooperative, No acute distress Heart: Regular rate Lungs: Crackles (bibasilar) Abdomen: Soft, No tenderness Extremities: No edema Skin: No significant lesion Labs Labs: Laboratory Tests Test 09/25/21 03:15 Hemoglobin 8.5 g/dL (12.0-15.5) Sodium Level 138 mmol/L (136-145) Potassium Level 5.5 mmol/L (3.5-5.1) Chloride Level 108 mmol/L (98-107) Carbon Dioxide Level 23 mmol/L (21-32) Anion Gap 7 (6-14) Blood Urea Nitrogen 75 mg/dL (7-20) Creatinine 2.5 mg/dL (0.6-1.0) Estimated GFR (Cockcroft-Gault) 18.6 Glucose Level 188 mg/dL (70-99) Calcium Level 8.7 mg/dL (8.5-10.1) Phosphorus Level 3.7 mg/dL (2.6-4.7) Magnesium Level 2.7 mg/dL (1.8-2.4) Albumin 2.5 g/dL (3.4-5.0) Comment Review of Relevant I have reviewed the following items poli (where applicable) has been applied. Justifications for Admission Other Justification MARYJANE SERVIN MD Sep 25, 2021 14:28
[2021-09-25] MEDS: ATORVASTATIN CALCIUM 40 MG TABLET. PO SCH (20:23)
[2021-09-25] MEDS: MIRTAZAPINE 15 MG TABLET PO SCH (20:23)
[2021-09-25] MEDS: MILRINONE 20MG/100ML PREMIX 100 ML IV PRN (23:16)
[2021-09-26] VITALS (12 sets, daily range): BP systolic 93–145; BP diastolic 44–69
[2021-09-26] MEDS: HEPARIN for SUB-Q USE 5,000 UNIT/ML VIAL. SQ SCH ×3 (05:55→21:20)
[2021-09-26] MEDS: SENNOSIDES/DOCUSATE 8.6/50MG TABLET. PO SCH ×2 (09:00→21:00)
[2021-09-26] MEDS ORDERED: IRON SUCROSE COMPLEX 200 MG in IV NORMAL SALINE 100ML 100 ML IV SCH (09:00)
[2021-09-26] MEDS: predniSONE 20 MG TABLET PO SCH (09:07)
[2021-09-26] MEDS: ASPIRIN CHEWABLE 81 MG TABLET. PO SCH (09:08)
[2021-09-26] MEDS: CARVEDILOL 12.5 MG TABLET. PO SCH ×2 (09:08→17:33)
[2021-09-26] MEDS: AMIODARONE HCL 200 MG TABLET. PO SCH (09:10)
[2021-09-26] MEDS: DICLOFENAC SODIUM 1% TOPICAL GEL 100GM TUBE. TP SCH ×2 (09:18→21:22)
--- NOTE | 2021-09-26 11:38 | PDOC ---
DATE OF SERVICE DATE: 09/26/21 TIME: 11:37 SUBJECTIVE ROS Sitting in chair, at bedside, Denies any complaints. Reports breathing stable OBJECTIVE Vital Signs Vital Signs Date Time Temp Pulse Resp B/P (MAP) Pulse Ox O2 Delivery O2 Flow Rate FiO2 09/26/21 10:59 97.6 59 19 114/69 (84) 98 Nasal Cannula 2.0 97.6 I & 0 Intake and Output 09/26/21 07:00 Intake Total 180 ml Output Total 1100 ml Balance -920 ml Intake Oral 180 ml Output Urine Total 1100 ml # Voids 2 # Bowel Movements 3 PHYSICAL EXAM Physical Exam GEN: Awake, Oriented x 3, In n distress EYES: Vision Unchanged, Conjunctiva Normal EN: No EN Drainage, Mucous Membranes 3 NECK: + JVD, + JVP, Supple, no Thyromegaly CVS: S1S2, + Murmur, No Gallop, No Rub, + Edema RESP: no Rales, no Rhonchi,no Acc. Muscle Use GI: BS + ve, NO Bruit, Non Tender, Non Distended : no CVA tenderness, no Suprapubic Tenderness DIAGNOSIS/ASSESSMENT Assessment & Plan Acute kidney injury: Creatinine has improved some today . Patient did not receive IV contrast during heart cath procedure. Current FLuid and E-lyte status does not necessitate emergent need for Dialysis. Decompensated cardiomyopathy may be contributing also to a prerenal state Severe cardiomyopathy with decompensation. She remains on inotropes per cardiology at this time. She was felt to be relatively euvolemic on cath and hence diuretics are held currently. Options regarding outpatient inotropic infusions versus being on a pump and/or long-term dialysis were discussed by cardiology with the family. Based on management of cardiomyopathy, she will be reevaluated for dialysis. Hypotension: We will make dialysis very challenging. May need to pursue peritoneal dialysis if need arises Underlying CKD presumed hypertensive nephrosclerosis with baseline creatinine closer to 2 cannot be ruled out. Pt reports never seen by nephrology . Iron deficiency anemia: getting IV iron COMMENT/RELEVANT DATA Meds Current Medications Medications (Trade) Dose Ordered Sig/Koby Start Time Stop Time Status Last Admin Dose Admin Acetaminophen (Tylenol) 650 mg PRN Q6HRS PRN 09/19/21 16:45 09/23/21 08:10 650 MG Albumin Human 100 ml @ 100 mls/hr 1X ONCE 09/20/21 05:00 09/20/21 05:59 DC 09/20/21 06:04 100 MLS/HR Amiodarone HCl (Cordarone) 200 mg DAILY 09/20/21 09:00 09/26/21 09:10 200 MG Aspirin (Aspirin Chewable) 81 mg DAILY 09/19/21 18:00 09/26/21 09:08 81 MG Atorvastatin Calcium (Lipitor) 80 mg QHS 09/19/21 21:00 09/25/21 20:23 80 MG Calcium Carbonate/ Glycine (Tums) 500 mg PRN Q3HRS PRN 09/19/21 16:45 Carvedilol (Coreg) 12.5 mg BIDWMEALS 09/19/21 17:00 09/26/21 09:08 12.5 MG Diclofenac Sodium (Voltaren) 1 jamee BID 09/23/21 14:30 09/26/21 09:18 1 JAMEE Dobutamine HCl/ Dextrose 250 ml @ 11.505 mls/ hr CONT PRN 09/21/21 14:15 09/22/21 14:54 11.505 MLS/HR Fentanyl Citrate (Fentanyl 2ml Vial) 50 mcg 1X ONCE 09/22/21 14:30 09/22/21 14:42 DC 09/22/21 14:15 50 MCG Furosemide (Lasix) 40 mg QODAY 09/20/21 09:00 09/26/21 11:10 DC 09/22/21 07:45 40 MG Heparin Sodium (Porcine) (Heparin Sodium) 5,000 unit Q8HRS 09/19/21 22:00 09/26/21 05:55 5,000 UNIT Heparin Sodium/ Sodium Chloride (HEPARIN for ARTERIAL LINE FLUSH) 1,000 unit 1X ONCE 09/22/21 14:30 09/22/21 14:42 DC 09/22/21 14:30 1,000 UNIT Influenza Virus Vaccine Quadrival (Flulaval Quad [id number] Syringe) 0.5 ml ONCE ONCE 09/19/21 16:00 09/19/21 16:01 UNV Info (Non-Icu Electrolyte Protocol) 1 ea PRN DAILY PRN 09/19/21 16:45 Iron Sucrose 200 mg/Sodium Chloride 110 ml @ 55 mls/hr 3X/WEEK 09/26/21 09:00 10/05/21 10:59 09/26/21 09:10 55 MLS/HR Lidocaine HCl (Buffered Lidocaine 1%) 6 ml 1X ONCE 09/23/21 15:15 09/23/21 15:16 DC Lidocaine HCl (Lidocaine 1% 20ml Vial) 4 ml 1X ONCE 09/22/21 14:30 09/22/21 14:42 DC 09/22/21 14:15 4 ML Losartan Potassium (Cozaar) 100 mg DAILY 09/19/21 18:00 09/20/21 17:00 DC 09/19/21 18:52 100 MG Magnesium Sulfate 50 ml @ 25 mls/hr PRN DAILY PRN 09/24/21 12:00 Methylprednisolone Sodium Succinate (SOLU-Medrol 125MG VIAL) 125 mg 1X ONCE 09/23/21 10:00 09/23/21 10:01 DC 09/23/21 10:00 125 MG Midazolam HCl (Versed) 1 mg 1X ONCE 09/22/21 14:30 09/22/21 14:42 DC 09/22/21 14:15 1 MG Milrinone Lactate/ Dextrose 100 ml @ 2.903 mls/ hr CONT PRN 09/23/21 14:00 09/25/21 23:16 2.903 MLS/HR Mirtazapine (Remeron) 15 mg QHS 09/21/21 21:00 09/25/21 20:23 15 MG Nitroglycerin (Nitrostat) 0.4 mg PRN Q5MIN PRN 09/19/21 17:00 Ondansetron HCl (Zofran) 4 mg PRN Q6HRS PRN 09/19/21 16:45 09/22/21 11:38 4 MG Prednisone (Prednisone) 40 mg DAILY 09/24/21 13:00 09/28/21 12:59 09/26/21 09:07 40 MG Senna/Docusate Sodium (Senna Plus) 1 tab BID 09/19/21 21:00 09/25/21 08:52 1 TAB Sodium Polystyrene Sulfonate (Kayexalate) 30 gm 1X ONCE 09/25/21 13:45 09/25/21 13:46 DC 09/25/21 14:11 30 GM Sodium Chloride 250 ml @ 250 mls/hr 1X ONCE 09/23/21 14:00 09/23/21 14:59 DC 09/23/21 15:27 250 MLS/HR Spironolactone (Aldactone) 50 mg DAILY 09/20/21 09:00 09/24/21 14:28 DC 09/24/21 12:05 50 MG Tramadol HCl (Ultram) 50 mg PRN Q6HRS PRN 09/23/21 14:00 Results All relevant outside records, renal labs, imaging studies, telemetry/EKG's were reviewed. Justicifation of Admission Dx: Justifications for Admission: Justification of Admission Dx: Yes LOIS MAIER MD Sep 26, 2021 11:38
--- NOTE | 2021-09-26 12:06 | PDOC ---
[employer] PROGRESS NOTE Date of Service DOS: DATE: 09/26/21 TIME: 12:05 Chief Complaint Chief Complaint Shortness of breath -negative COVID-19. She said a cough for some time but not significantly productive clear frothy sputum. This is acute CHF Acute combined CHF -will zhene. Consult cardiology for further assistance Acute respiratory failure with hypoxia -due to acute CHF exacerbation most likely will less likely pneumonia given bilateral changes in bilateral adventitious breath sounds Cardiomyopathy S/p AICD - no discharges per patient Ankle pain - likely gout, with renal insufficency can only give prednisone Hyperuricemia - treating likely gout flare KORY - on some CKD Hyperkalemia - will monitor History of Present Illness History of Present Illness Ms Bonilla is a 76-year-old female with past medical history significant for CAD, CHF, hypercholesteremia and hypertension who presents to the emergency department with a chief complaint of shortness of breath for about the last 3 days more than usual. States she has had some dyspnea on exertion, and orthopnea and has had to sleep sitting up. States that she is probably gained a few pounds over the last week. Does not feel as if she is having any swelling or edema. States she is making urine and stool normally for her with no blood in either. States she is taking all her medications as prescribed. States she has had all of her COVID vaccinations and denies any known ill contacts. Denies any recent travels, fevers, chest pain, nausea, vomiting, abdominal pain. 09/20: COVID-19 negative. O2 saturations 96% on 5 L/min nasal cannula. Patient little better able to lay more flat. She was unable to get up to the commode is wearing an adult diaper to urinate. Feels little weak but overall feels her shortness of breath is little improved. Note she was recently switched to furosemide 3 times per week and her Aldactone has been reduced by 75%. 09/21: Had some shortness of breath overnight. CXR with some interstitial changes today. She is feeling depressed. Didn't sleep well. Plan for RHC in AM after echo revealed LV ejection fraction is estimated 25% and severe global hypokinesis of the left ventricle. 09/22: Blood pressure and symptoms improved on dobutamine infusion and continue diuresis. Still short of breath but is able to lay more flat. Very anxious. She is n.p.o. for right heart cath today still requiring 3 L nasal cannula oxygen. Previously has had oxygen but only when she had pneumonia. She is euvolemic after right heart cath biventricular filling pressures normal no vignesh dence of pulmonary hypertension just severe cardiomyopathy, will need a 6-minute walk and likely referral to advanced heart failure clinic. Discussed with bedside. 09/23: Off dobutamine. C/o extreme bilateral foot pain. Hyperesthetic especially at left ankle. Will check uric acid start steroids for likely gout flare. Still on O2. Not able to get up to walk for 6-minute walk test. Shortness of breath and chest pain improved creatinine increased to 3. 09/24: PICC placed for milrinone gtt. Overall she feels a little depressed but she did sleep 4 hours last night. Has family visiting bedside. She understands the severity of her CHF. All questions answered. Bilateral foot pain improved. Has been able to stand her foot. 09/25: K5.5, BUN 75, CR 2.5, feet are feeling better. Chest radiograph with cardiomegaly pulmonary vascular congestion and right basilar opacity. 09/26 Patient evaluated examined at bedside. Overall feeling better. Still on milrinone drip. possibly can stop this today per cardiology. Otherwise continue current. Vitals/I&O Vitals/I&O: Vital Signs Date Time Temp Pulse Resp B/P (MAP) Pulse Ox O2 Delivery O2 Flow Rate FiO2 09/26/21 10:59 97.6 59 19 114/69 (84) 98 Nasal Cannula 2.0 97.6 I & O 09/25/21 09/25/21 09/26/21 15:00 23:00 07:00 Intake Total 180 ml 0 ml Output Total 200 ml 500 ml 400 ml Balance -200 ml -320 ml -400 ml Physical Exam General: Alert, Oriented X3, Cooperative, No acute distress Heart: Regular rate Lungs: Crackles (bibasilar) Abdomen: Soft, No tenderness Extremities: No edema Skin: No significant lesion Comment Review of Relevant I have reviewed the following items poli (where applicable) has been applied. Medications: Current Medications Medications (Trade) Dose Ordered Sig/Koby Route PRN Reason Start Time Stop Time Status Last Admin Dose Admin Sodium Polystyrene Sulfonate (Kayexalate) 30 gm 1X ONCE PO 09/25/21 13:45 09/25/21 13:46 DC 09/25/21 14:11 Iron Sucrose 200 mg/Sodium Chloride 110 ml @ 55 mls/hr 3X/WEEK IV 09/26/21 09:00 10/05/21 10:59 09/26/21 09:10 Justifications for Admission Other Justification MARYJANE BUITRAGO MD Sep 26, 2021 12:06
--- NOTE | 2021-09-26 12:22 | PDOC ---
MIGUELINA STOREY ROTARY DRILLER 09/26/21 1222: CARDIO Progress Notes Date and Time Date of Service 09/26/21 Time of Evaluation 1210 Subjective Subjective: No Chest Pain, No Palpitations, Other (breathing improved) Vitals Vitals Vital Signs Date Time Temp Pulse Resp B/P (MAP) Pulse Ox O2 Delivery O2 Flow Rate FiO2 09/26/21 10:59 97.6 59 19 114/69 (84) 98 Nasal Cannula 2.0 97.6 Weight Weight [ ] Input and Output Intake and Output Intake and Output 09/26/21 07:00 Intake Total 180 ml Output Total 1100 ml Balance -920 ml Intake Oral 180 ml Output Urine Total 1100 ml # Voids 2 # Bowel Movements 3 Microbiology Micro Microbiology 09/20/21 Urine Culture - Final, Complete Sultana Tropicalis Lactobacillus Species Physical Exam HEENT: Neck Supple W Full Motion Chest: Symmetric LUNGS: Other (diminished bases) Heart: RRR (a-paced ) Abdomen: Soft N/T Extremities: No Edema Neurology: alert, oriented, follow commands Assessment Assessment 1. Acute on chronic systolic CHF: better. appears compensated 2. Ischemic Cardiomyopathy s/p AICD ([employer]). Last echo noted per [facility] records was in 2012 with an EF 38%. Echo this admission with LVEF 25% 3. CAD s/p PCI/stent to ramus in 2010. with known occluded LAD and circumflex, collaterals from RCA. Managed medically. Follows with Dr. Noé BENNETT 4. KORY on CKD; Cr better at 1.7 5. Hypertension; remains low end, but adequate 6. Hyperlipidemia; statin 7. H/o VF arrest; on Amiodarone therapy for rhythm maintenance. s/p AICD 8. Large ascending aortic saccular aneurysm; patient has declined any re- attempt at surgical intervention. Her previous heart catheterization was associated with an acute CVA 9. H/o CVA 10. Cardiogenic shock; RHC revealed normal biventricular filling pressures but with low cardiac output; on milrinone. improved Recommendations HF optimization Discontinue milrinone therapy Continue BB. No MAUREEN/ARB with KORY Reinforced 2Gm Na diet, 2000cc FR, and daily weight monitoring. Mid Wife consult Secondary prevention 6 min walk today Supportive care Justicifation of Admission Dx: Justifications for Admission: Justification of Admission Dx: Yes ANA MARÍA MG MD 09/26/21 8324: CARDIO Progress Notes Plan Plan The patient was seen and interviewed as well as examined at the bedside. The chart was reviewed. The case was discussed. Agree with the plan of care. MIGUELINA STOREY APRN Sep 26, 2021 12:22 ANA MARÍA MG MD Sep 26, 2021 16:44
[2021-09-26 14:02] LABS: ALBUMIN 2.6 g/dL (3.4-5.0); CALCIUM 8.5 mg/dL (8.5-10.1); CREATININE 1.7 mg/dL (0.6-1.0); GFR 29.1; POTASSIUM 4.4 mmol/L (3.5-5.1)
--- NOTE | 2021-09-26 15:13 | NUR ---
SS following for discharge planning. SS reviewed pt chart and discussed with pt RN. Pt is currently requiring oxygen at two liters nasal canula. Pt has no home oxygen. PT/OT recommended home with home healthcare. Probable need for six minute walk prior to discharge. SS will continue to follow for discharge planning.
[2021-09-26] MEDS: MIRTAZAPINE 15 MG TABLET PO SCH (21:19)
[2021-09-26] MEDS: ATORVASTATIN CALCIUM 40 MG TABLET. PO SCH (21:19)
[2021-09-27 03:02] VITALS: BP 119/56
[2021-09-27] MEDS: HEPARIN for SUB-Q USE 5,000 UNIT/ML VIAL. SQ SCH (05:54)
[2021-09-27 07:00] VITALS: BP 146/74
[2021-09-27] MEDS: SENNOSIDES/DOCUSATE 8.6/50MG TABLET. PO SCH (08:27)
[2021-09-27] MEDS: predniSONE 20 MG TABLET PO SCH (08:28)
[2021-09-27] MEDS: CARVEDILOL 12.5 MG TABLET. PO SCH (08:28)
[2021-09-27] MEDS: ASPIRIN CHEWABLE 81 MG TABLET. PO SCH (08:28)
[2021-09-27] MEDS: AMIODARONE HCL 200 MG TABLET. PO SCH (08:28)
[2021-09-27] MEDS: DICLOFENAC SODIUM 1% TOPICAL GEL 100GM TUBE. TP SCH (08:31)
--- NOTE | 2021-09-27 09:58 | PDOC ---
DATE OF SERVICE DATE: 09/27/21 TIME: 09:58 SUBJECTIVE ROS Denies any complaints. No SOB OBJECTIVE Vital Signs Vital Signs Date Time Temp Pulse Resp B/P (MAP) Pulse Ox O2 Delivery O2 Flow Rate FiO2 09/27/21 08:28 64 146/74 09/27/21 08:00 Nasal Cannula 2.0 09/27/21 07:00 97.5 17 98 97.5 I & 0 Intake and Output 09/27/21 06:59 Intake Total 820 ml Output Total 600 ml Balance 220 ml Intake Oral 820 ml Output Urine Total 600 ml PHYSICAL EXAM Physical Exam GEN: Awake, Oriented x 3, In n distress EYES: Vision Unchanged, Conjunctiva Normal EN: No EN Drainage, Mucous Membranes 3 NECK: + JVD, + JVP, Supple, no Thyromegaly CVS: S1S2, + Murmur, No Gallop, No Rub, + Edema RESP: no Rales, no Rhonchi,no Acc. Muscle Use GI: BS + ve, NO Bruit, Non Tender, Non Distended : no CVA tenderness, no Suprapubic Tenderness DIAGNOSIS/ASSESSMENT Assessment & Plan Acute kidney injury: Creatinine trending down . Patient did not receive IV contrast during heart cath procedure. Underlying CKD presumed hypertensive nephrosclerosis with baseline creatinine closer to 2 cannot be ruled out. Pt reports never seen by nephrology . Recommend fu non urgent/Routine Iron deficiency anemia: getting IV iron Acute on chronic systolic CHF: better. appears compensated .Off Milrinone Ischemic Cardiomyopathy s/p AICD). Last echo noted per [facility] records was in 2012 with an EF 38%. Echo this admission with LVEF 25% CAD s/p PCI/stent to ramus in 2010. with known occluded LAD and circumflex, collaterals from RCA. Managed medically. Follows with Dr. Noé BENNETT H/o VF arrest; on Amiodarone therapy for rhythm maintenance. s/p AICD Large ascending aortic saccular aneurysm; patient has declined any re-attempt at surgical intervention. Her previous heart catheterization was associated with an acute CVA H/o CVA Cardiogenic shock; RHC revealed normal biventricular filling pressures but with low cardiac output; COMMENT/RELEVANT DATA Meds Current Medications Medications (Trade) Dose Ordered Sig/Koby Start Time Stop Time Status Last Admin Dose Admin Acetaminophen (Tylenol) 650 mg PRN Q6HRS PRN 09/19/21 16:45 09/23/21 08:10 650 MG Albumin Human 100 ml @ 100 mls/hr 1X ONCE 09/20/21 05:00 09/20/21 05:59 DC 09/20/21 06:04 100 MLS/HR Amiodarone HCl (Cordarone) 200 mg DAILY 09/20/21 09:00 09/27/21 08:28 200 MG Aspirin (Aspirin Chewable) 81 mg DAILY 09/19/21 18:00 09/27/21 08:28 81 MG Atorvastatin Calcium (Lipitor) 80 mg QHS 09/19/21 21:00 09/26/21 21:19 80 MG Calcium Carbonate/ Glycine (Tums) 500 mg PRN Q3HRS PRN 09/19/21 16:45 Carvedilol (Coreg) 12.5 mg BIDWMEALS 09/19/21 17:00 09/27/21 08:28 12.5 MG Diclofenac Sodium (Voltaren) 1 jamee BID 09/23/21 14:30 09/27/21 08:31 1 JAMEE Dobutamine HCl/ Dextrose 250 ml @ 11.505 mls/ hr CONT PRN 09/21/21 14:15 09/26/21 15:30 DC 09/22/21 14:54 11.505 MLS/HR Fentanyl Citrate (Fentanyl 2ml Vial) 50 mcg 1X ONCE 09/22/21 14:30 09/22/21 14:42 DC 09/22/21 14:15 50 MCG Furosemide (Lasix) 40 mg QODAY 09/20/21 09:00 09/26/21 11:10 DC 09/22/21 07:45 40 MG Heparin Sodium (Porcine) (Heparin Sodium) 5,000 unit Q8HRS 09/19/21 22:00 09/27/21 05:54 5,000 UNIT Heparin Sodium/ Sodium Chloride (HEPARIN for ARTERIAL LINE FLUSH) 1,000 unit 1X ONCE 09/22/21 14:30 09/22/21 14:42 DC 09/22/21 14:30 1,000 UNIT Influenza Virus Vaccine Quadrival (Flulaval Quad [id number] Syringe) 0.5 ml ONCE ONCE 09/19/21 16:00 09/19/21 16:01 UNV Info (Non-Icu Electrolyte Protocol) 1 ea PRN DAILY PRN 09/19/21 16:45 Iron Sucrose 200 mg/Sodium Chloride 110 ml @ 55 mls/hr 3X/WEEK 09/26/21 09:00 10/05/21 10:59 09/26/21 09:10 55 MLS/HR Lidocaine HCl (Buffered Lidocaine 1%) 6 ml 1X ONCE 09/23/21 15:15 09/23/21 15:16 DC Lidocaine HCl (Lidocaine 1% 20ml Vial) 4 ml 1X ONCE 09/22/21 14:30 09/22/21 14:42 DC 09/22/21 14:15 4 ML Losartan Potassium (Cozaar) 100 mg DAILY 09/19/21 18:00 09/20/21 17:00 DC 09/19/21 18:52 100 MG Magnesium Sulfate 50 ml @ 25 mls/hr PRN DAILY PRN 09/24/21 12:00 Methylprednisolone Sodium Succinate (SOLU-Medrol 125MG VIAL) 125 mg 1X ONCE 09/23/21 10:00 09/23/21 10:01 DC 09/23/21 10:00 125 MG Midazolam HCl (Versed) 1 mg 1X ONCE 09/22/21 14:30 09/22/21 14:42 DC 09/22/21 14:15 1 MG Milrinone Lactate/ Dextrose 100 ml @ 2.903 mls/ hr CONT PRN 09/23/21 14:00 09/26/21 13:05 DC 09/25/21 23:16 2.903 MLS/HR Mirtazapine (Remeron) 15 mg QHS 09/21/21 21:00 09/26/21 21:19 15 MG Nitroglycerin (Nitrostat) 0.4 mg PRN Q5MIN PRN 09/19/21 17:00 Ondansetron HCl (Zofran) 4 mg PRN Q6HRS PRN 09/19/21 16:45 09/22/21 11:38 4 MG Prednisone (Prednisone) 40 mg DAILY 09/24/21 13:00 09/28/21 12:59 09/27/21 08:28 40 MG Senna/Docusate Sodium (Senna Plus) 1 tab BID 09/19/21 21:00 09/25/21 08:52 1 TAB Sodium Polystyrene Sulfonate (Kayexalate) 30 gm 1X ONCE 09/25/21 13:45 09/25/21 13:46 DC 09/25/21 14:11 30 GM Sodium Chloride 250 ml @ 250 mls/hr 1X ONCE 09/23/21 14:00 09/23/21 14:59 DC 09/23/21 15:27 250 MLS/HR Spironolactone (Aldactone) 50 mg DAILY 09/20/21 09:00 09/24/21 14:28 DC 09/24/21 12:05 50 MG Tramadol HCl (Ultram) 50 mg PRN Q6HRS PRN 09/23/21 14:00 Lab Laboratory Tests Test 09/26/21 13:29 09/27/21 06:09 Sodium Level 143 mmol/L (136-145) Potassium Level 4.4 mmol/L (3.5-5.1) Chloride Level 109 mmol/L (98-107) Carbon Dioxide Level 25 mmol/L (21-32) Anion Gap 9 (6-14) Blood Urea Nitrogen 58 mg/dL (7-20) Creatinine 1.7 mg/dL (0.6-1.0) Estimated GFR (Cockcroft-Gault) 29.1 Glucose Level 217 mg/dL (70-99) Calcium Level 8.5 mg/dL (8.5-10.1) Phosphorus Level 3.0 mg/dL (2.6-4.7) Magnesium Level 2.4 mg/dL (1.8-2.4) 2.4 mg/dL (1.8-2.4) Albumin 2.6 g/dL (3.4-5.0) Results All relevant outside records, renal labs, imaging studies, telemetry/EKG's were reviewed. Justicifation of Admission Dx: Justifications for Admission: Justification of Admission Dx: Yes LOIS MAIER MD Sep 27, 2021 09:58
[2021-09-27] MEDS ORDERED: MIRT-7 PO (10:20)
--- NOTE | 2021-09-27 10:24 | PDOC ---
[employer] PROGRESS NOTE Date of Service DOS: DATE: 09/27/21 TIME: 10:02 Chief Complaint Chief Complaint Shortness of breath -negative COVID-19. She said a cough for some time but not significantly productive clear frothy sputum. This is acute CHF Acute combined CHF -will zhene. Consult cardiology for further assistance Acute respiratory failure with hypoxia -due to acute CHF exacerbation most likely will less likely pneumonia given bilateral changes in bilateral adventitious breath sounds Cardiomyopathy S/p AICD - no discharges per patient Ankle pain - likely gout, with renal insufficency can only give prednisone Hyperuricemia - treating likely gout flare KORY - on some CKD Hyperkalemia - will monitor History of Present Illness History of Present Illness Ms Bonilla is a 76-year-old female with past medical history significant for CAD, CHF, hypercholesteremia and hypertension who presents to the emergency department with a chief complaint of shortness of breath for about the last 3 days more than usual. States she has had some dyspnea on exertion, and orthopnea and has had to sleep sitting up. States that she is probably gained a few pounds over the last week. Does not feel as if she is having any swelling or edema. States she is making urine and stool normally for her with no blood in either. States she is taking all her medications as prescribed. States she has had all of her COVID vaccinations and denies any known ill contacts. Denies any recent travels, fevers, chest pain, nausea, vomiting, abdominal pain. 09/20: COVID-19 negative. O2 saturations 96% on 5 L/min nasal cannula. Patient little better able to lay more flat. She was unable to get up to the commode is wearing an adult diaper to urinate. Feels little weak but overall feels her shortness of breath is little improved. Note she was recently switched to furosemide 3 times per week and her Aldactone has been reduced by 75%. 09/21: Had some shortness of breath overnight. CXR with some interstitial changes today. She is feeling depressed. Didn't sleep well. Plan for RHC in AM after echo revealed LV ejection fraction is estimated 25% and severe global hypokinesis of the left ventricle. 09/22: Blood pressure and symptoms improved on dobutamine infusion and continue diuresis. Still short of breath but is able to lay more flat. Very anxious. She is n.p.o. for right heart cath today still requiring 3 L nasal cannula oxygen. Previously has had oxygen but only when she had pneumonia. She is euvolemic after right heart cath biventricular filling pressures normal no vignesh dence of pulmonary hypertension just severe cardiomyopathy, will need a 6-minute walk and likely referral to advanced heart failure clinic. Discussed with bedside. 09/23: Off dobutamine. C/o extreme bilateral foot pain. Hyperesthetic especially at left ankle. Will check uric acid start steroids for likely gout flare. Still on O2. Not able to get up to walk for 6-minute walk test. Shortness of breath and chest pain improved creatinine increased to 3. 09/24: PICC placed for milrinone gtt. Overall she feels a little depressed but she did sleep 4 hours last night. Has family visiting bedside. She understands the severity of her CHF. All questions answered. Bilateral foot pain improved. Has been able to stand her foot. 09/25: K5.5, BUN 75, CR 2.5, feet are feeling better. Chest radiograph with cardiomegaly pulmonary vascular congestion and right basilar opacity. 09/26: Patient evaluated examined at bedside. Overall feeling better. Still on milrinone drip. possibly can stop this today per cardiology. Otherwise continue current. 09/27: Off milrinone GTT. Chest pain-free. Minimal shortness of breath. She walked up and down the stairs with physical therapy and did not have any O2 needs during this time. Plan: Follow up with Dr. Umanzor as soon as possible. Download Glass jamee to communicate with [facility] physician Follow up with Doctor Mcdonald at [facility] Weigh yourself daily if you gain 2 pounds or more call your fleet manager and take an additional furosemide dose. If you lose 2 pounds in a day hold your furosemide dose for that day. Start taking psyllium powder 2 tablespoons nightly in the form of Metamucil dissolved in 8 ounces of water 1 to 2 hours after the evening meal. If he still suffers constipation you can add MiraLAX 3 tablespoons. Continue prednisone for the next 4 days for gout flareup. Vitals/I&O Vitals/I&O: Vital Signs Date Time Temp Pulse Resp B/P (MAP) Pulse Ox O2 Delivery O2 Flow Rate FiO2 09/27/21 08:28 64 146/74 09/27/21 08:00 Nasal Cannula 2.0 09/27/21 07:00 97.5 17 98 97.5 I & O 09/26/21 09/26/21 09/27/21 15:00 23:00 07:00 Intake Total 360 ml 460 ml 0 ml Output Total 400 ml 200 ml Balance 360 ml 60 ml -200 ml Physical Exam General: Alert, Oriented X3, Cooperative, No acute distress Heart: Regular rate Lungs: Crackles (bibasilar) Abdomen: Soft, No tenderness Extremities: No edema Skin: No significant lesion Labs Labs: Laboratory Tests Test 09/26/21 13:29 09/27/21 06:09 Sodium Level 143 mmol/L (136-145) Potassium Level 4.4 mmol/L (3.5-5.1) Chloride Level 109 mmol/L (98-107) Carbon Dioxide Level 25 mmol/L (21-32) Anion Gap 9 (6-14) Blood Urea Nitrogen 58 mg/dL (7-20) Creatinine 1.7 mg/dL (0.6-1.0) Estimated GFR (Cockcroft-Gault) 29.1 Glucose Level 217 mg/dL (70-99) Calcium Level 8.5 mg/dL (8.5-10.1) Phosphorus Level 3.0 mg/dL (2.6-4.7) Magnesium Level 2.4 mg/dL (1.8-2.4) 2.4 mg/dL (1.8-2.4) Albumin 2.6 g/dL (3.4-5.0) Comment Review of Relevant I have reviewed the following items poli (where applicable) has been applied. Justifications for Admission Other Justification MARYJANE SERVIN MD Sep 27, 2021 10:24
--- NOTE | 2021-09-27 10:26 | SNU/HH DC ---
DISCHARGE WITH HOME HEALTH DISCHARGE INFORMATION: Discharge Date: Sep 27, 2021 Final Diagnosis: Acute systolic CHF Condition on Discharge: Stable CODE STATUS: Code Status: Full HOME HEALTH: Face to Face: I certify this patient is under my care and that I, or a nurse practitioner or physician's executive personal assistant working with me, had a face to face encounter that meets the physician face to face encounter requirements with this patient on 09/27/2021. Medical Complications: CHF Prison For: Assess Cardiopulm Status, Assess & Educate Safety, Assess/Skilled Observatio, Medication Management RN For Eval/Treatment: Yes Physical Therapy For: Evalulation/Treatment Occupational Therapy For: Evaluation/Treatment Pt Meets Homebound Status: Unsteady balance w/ amb,, Fatigue w/ amb., Limited distance walking POST DISCHARGE ORDERS: Activity Instructions for Disc: Activity as tolerated Weight Bearing Status after Di: As tolerated DIET AFTER DISCHARGE: Cardiac Wound/Incision Care: No wound care needed CHECKS AFTER DISCHARGE: Checks after discharge: Check blood press - daily, Check your Temp as needed FOLLOW-UP: Follow up with: cardiology Follow Up With: Dr. Mcdonald Additional Instructions: Follow up with Dr. Umanzor as soon as possible. Download [employer] jamee to communicate with [facility] physician [facility] Doctors: Vinnie [address] [place] [address], [facility] [address] [place] [address] Weigh yourself daily if you gain 2 pounds or more call your trestle mechanic and take an additional furosemide dose. If you lose 2 pounds in a day hold your furosemide dose for that day. Start taking psyllium powder 2 tablespoons nightly in the form of Metamucil dissolved in 8 ounces of water 1 to 2 hours after the evening meal. If he still suffers constipation you can add MiraLAX 3 tablespoons. Continue prednisone for the next 4 days for gout flareup. TREATMENT/EQUIPMENT ORDERS: Adaptive Equipment Issued: Walker Discharge Respiratory Equipmen: Oxygen CERTIFICATION STATEMENT: Certification Statement: Certification Statement: Based on the above finding, I certify that this patient is confined to the home and needs intermittent penitentiary care, physical therapy and/or speech therapy, or continues to need occupational therapy.~ This patient is under my care, and I have initiated the establishment of the plan of care.~ This patient will be followed by myself or a community physician who will periodically review the plan of care. Home Meds Active Scripts Mirtazapine (MIRTAZAPINE) 15 Mg Tablet, 15 MG PO QHS for Mood,sleep for 30 Days, #30 TAB 2 Refills Prov:MARYJANE SERVIN MD 09/27/21 Prednisone (PREDNISONE) 20 Mg Tablet, 2 TAB PO DAILY for GOUT for 4 Days, #8 TAB Prov:MARYJANE SERVIN MD 09/23/21 Reported Medications Nitroglycerin (NITROGLYCERIN SubLingual) 0.4 Mg Tab.subl, 0.4 MG SL PRN Q5MIN PRN for CHEST PAIN, ML 09/19/21 Furosemide (LASIX) 40 Mg Tablet, 1 TAB PO QODAY for diuretic for 30 Days, #30 TAB 0 Refills 09/19/21 Carvedilol (CARVEDILOL) 25 Mg Tablet, 12.5 MG PO HS for CARDIAC, TAB 09/19/21 Atorvastatin Calcium (Atorvastatin Calcium) 80 Mg Tablet, 80 MG PO QHS for FOR HIGH CHOLESTEROL, TAB 09/19/21 Aspirin (ASPIRIN) 81 Mg Tab.chew, 1 TAB PO DAILY for cardiac, #30 TAB 3 Refills 09/19/21 Amiodarone Hcl (AMIODARONE HCL) 200 Mg Tablet, 1 TAB PO DAILY for cardiac, #90 TAB 1 Refill 09/19/21 Discontinued Reported Medications Losartan Potassium (LOSARTAN POTASSIUM) 100 Mg Tablet, 100 MG PO DAILY for HYPERTENSION, TAB 09/19/21 Carvedilol (CARVEDILOL) 25 Mg Tablet, 18.75 MG PO DAILY for CARDIAC, TAB 09/19/21 MARYJANE SERVIN MD Sep 27, 2021 10:26
[2021-09-27 10:31] VITALS: BP 112/62
--- NOTE | 2021-09-27 10:31 | PDOC3 ---
Discharge Summary Visit Information Date of Admission: Sep 19, 2021 Date of Discharge: Sep 27, 2021 Admitting Diagnosis: Acute systolic CHF Final Diagnosis Acute systolic CHF Brief Hospital Course Allergies Allergies Coded Allergies Type Severity Reaction Last Updated Verified codeine Allergy Intermediate 09/19/21 Yes morphine Allergy Intermediate 09/19/21 Yes Vital Signs Vital Signs Date Time Temp Pulse Resp B/P (MAP) Pulse Ox O2 Delivery O2 Flow Rate FiO2 09/27/21 08:28 64 146/74 09/27/21 08:00 Nasal Cannula 2.0 09/27/21 07:00 97.5 17 98 97.5 Lab Results Laboratory Tests Test 09/26/21 13:29 09/27/21 06:09 Sodium Level 143 mmol/L (136-145) Potassium Level 4.4 mmol/L (3.5-5.1) Chloride Level 109 mmol/L (98-107) Carbon Dioxide Level 25 mmol/L (21-32) Anion Gap 9 (6-14) Blood Urea Nitrogen 58 mg/dL (7-20) Creatinine 1.7 mg/dL (0.6-1.0) Estimated GFR (Cockcroft-Gault) 29.1 Glucose Level 217 mg/dL (70-99) Calcium Level 8.5 mg/dL (8.5-10.1) Phosphorus Level 3.0 mg/dL (2.6-4.7) Magnesium Level 2.4 mg/dL (1.8-2.4) 2.4 mg/dL (1.8-2.4) Albumin 2.6 g/dL (3.4-5.0) Laboratory Tests Test 09/26/21 13:29 09/27/21 06:09 Sodium Level 143 mmol/L (136-145) Potassium Level 4.4 mmol/L (3.5-5.1) Chloride Level 109 mmol/L (98-107) Carbon Dioxide Level 25 mmol/L (21-32) Anion Gap 9 (6-14) Blood Urea Nitrogen 58 mg/dL (7-20) Creatinine 1.7 mg/dL (0.6-1.0) Estimated GFR (Cockcroft-Gault) 29.1 Glucose Level 217 mg/dL (70-99) Calcium Level 8.5 mg/dL (8.5-10.1) Phosphorus Level 3.0 mg/dL (2.6-4.7) Magnesium Level 2.4 mg/dL (1.8-2.4) 2.4 mg/dL (1.8-2.4) Albumin 2.6 g/dL (3.4-5.0) Brief Hospital Course Ms Bonilla is a 76-year-old female with past medical history significant for CAD, CHF, hypercholesteremia and hypertension who presents to the emergency department with a chief complaint of shortness of breath for about the last 3 days more than usual. States she has had some dyspnea on exertion, and orthopnea and has had to sleep sitting up. States that she is probably gained a few pounds over the last week. Does not feel as if she is having any swelling or edema. States she is making urine and stool normally for her with no blood in either. States she is taking all her medications as prescribed. States she has had all of her COVID vaccinations and denies any known ill contacts. Denies any recent travels, fevers, chest pain, nausea, vomiting, abdominal pain. 09/20: COVID-19 negative. O2 saturations 96% on 5 L/min nasal cannula. Patient little better able to lay more flat. She was unable to get up to the commode is wearing an adult diaper to urinate. Feels little weak but overall feels her shortness of breath is little improved. Note she was recently switched to furosemide 3 times per week and her Aldactone has been reduced by 75%. 09/21: Had some shortness of breath overnight. CXR with some interstitial changes today. She is feeling depressed. Didn't sleep well. Plan for RHC in AM after echo revealed LV ejection fraction is estimated 25% and severe global hypokinesis of the left ventricle. 09/22: Blood pressure and symptoms improved on dobutamine infusion and continue diuresis. Still short of breath but is able to lay more flat. Very anxious. She is n.p.o. for right heart cath today still requiring 3 L nasal cannula oxygen. Previously has had oxygen but only when she had pneumonia. She is euvolemic after right heart cath biventricular filling pressures normal no evidence of pulmonary hypertension just severe cardiomyopathy, will need a 6- minute walk and likely referral to advanced heart failure clinic. Discussed with bedside. 09/23: Off dobutamine. C/o extreme bilateral foot pain. Hyperesthetic especially at left ankle. Will check uric acid start steroids for likely gout flare. Still on O2. Not able to get up to walk for 6-minute walk test. Shortness of breath and chest pain improved creatinine increased to 3. 09/24: PICC placed for milrinone gtt. Overall she feels a little depressed but she did sleep 4 hours last night. Has family visiting bedside. She understands the severity of her CHF. All questions answered. Bilateral foot pain improved. Has been able to stand her foot. 09/25: K5.5, BUN 75, CR 2.5, feet are feeling better. Chest radiograph with cardiomegaly pulmonary vascular congestion and right basilar opacity. 09/26: Patient evaluated examined at bedside. Overall feeling better. Still on milrinone drip. possibly can stop this today per cardiology. Otherwise continue current. 09/27: Off milrinone GTT. Chest pain-free. Minimal shortness of breath. She walked up and down the stairs with physical therapy and did not have any O2 needs during this time. Overall had a prolonged hospitalization due to an acute systolic CHF exacerbation complicated by acute renal failure requiring nephrology consultation as well as gout of bilateral ankles. Due to cor pulmonale she was hypoxic and required 6-minute walk for oxygen needs prior to discharge. Consults: Cardiology, nephrology Problem list: Shortness of breath -negative COVID-19. She said a cough for some time but not significantly productive clear frothy sputum. This is acute CHF Acute combined CHF -will diurese. Consult cardiology for further assistance. Due to renal failure and low blood pressure cannot tolerate MAUREEN inhibitor or ARB at this time and cannot take Imdur and hydralazine due to persistently low bribe blood pressure maintained on carvedilol statin and aspirin. Acute respiratory failure with hypoxia -due to acute CHF exacerbation most likely will less likely pneumonia given bilateral changes in bilateral adventiti ous breath sounds Cardiomyopathy S/p AICD - no discharges per patient Ankle pain - likely gout, with renal insufficency can only give prednisone Hyperuricemia - treating likely gout flare KORY - on some CKD Hyperkalemia - will monitor. Needs to hold spironolactone Plan: Follow up with Dr. Umanzor as soon as possible. Download [employer] jamee to communicate with [facility] physician [facility] Doctors: Vinnie [address] [place] [address] [address] [place] [address] We yourself daily if you gain 2 pounds or more call your pocketed spring machine operator and take an additional furosemide dose. If you lose 2 pounds in a day hold your furosemide dose for that day. Start taking psyllium powder 2 tablespoons nightly in the form of Metamucil dis solved in 8 ounces of water 1 to 2 hours after the evening meal. If he still suffers constipation you can add MiraLAX 3 tablespoons. Continue prednisone for the next 4 days for gout flareup. Greater than 30 minutes spent on discharge home with home health Discharge Information Condition at Discharge: Improved Follow Up: Weeks (1) Disposition/Orders: D/C to Home w/ HH Scheduled Amiodarone Hcl (Amiodarone Hcl) 200 Mg Tablet, 1 TAB PO DAILY for cardiac, #90 Ref 1 (Reported) Entered as Reported by: MC REYES on 09/19/211619 Last Action: Continued on 09/20/21603 by MARYJANE BUITRAGO MD Aspirin (Aspirin) 81 Mg Tab.chew, 1 TAB PO DAILY for cardiac, #30 Ref 3 (Reported) Entered as Reported by: MC REYES on 09/19/211619 Last Action: Continued on 09/19/211648 by MARYJANE BUITRAGO MD Atorvastatin Calcium (Atorvastatin Calcium) 80 Mg Tablet, 80 MG PO QHS for FOR HIGH CHOLESTEROL, (Reported) Entered as Reported by: MC REYES on 09/19/211619 Last Action: Converted on 09/19/211648 by MARYJANE BUITRAGO MD Carvedilol (Carvedilol) 25 Mg Tablet, 12.5 MG PO HS for CARDIAC, (Reported) Entered as Reported by: MC REYES on 09/19/211619 Last Action: Converted on 09/19/211648 by MARYJANE BUITRAGO MD Furosemide (Lasix) 40 Mg Tablet, 1 TAB PO QODAY for diuretic for 30 Days, #30 Ref 0 (Reported) Entered as Reported by: MC REYES on 09/19/211619 Last Action: Continued on 09/19/211648 by MARYJANE BUITRAGO MD Mirtazapine (Mirtazapine) 15 Mg Tablet, 15 MG PO QHS for Mood,sleep for 30 Days, #30 Ref 2 Prescribed by: MARYJANE SERVIN MD on 09/27/21 1020 Prednisone (Prednisone) 20 Mg Tablet, 2 TAB PO DAILY for GOUT for 4 Days, #8 Prescribed by: MARYJANE SERVIN MD on 09/23/21 1334 Scheduled PRN Nitroglycerin (NITROGLYCERIN SubLingual) 0.4 Mg Tab.subl, 0.4 MG SL PRN Q5MIN PRN for CHEST PAIN, (Reported) Entered as Reported by: MC REYES on 09/19/211619 Last Action: Continued on 09/19/211648 by MARYJANE BUITRAGO MD Discontinued Medications Carvedilol (Carvedilol) 25 Mg Tablet, 18.75 MG PO DAILY for CARDIAC, (Reported) Entered as Reported by: MC REYES on 09/19/211619 Last Action: HELD on 09/19/211648 by MARYJANE BUITRAGO MD Losartan Potassium (Losartan Potassium) 100 Mg Tablet, 100 MG PO DAILY for HYPERTENSION, (Reported) Entered as Reported by: MC REYES on 09/19/211619 Last Action: Converted on 09/19/211648 by MARYJANE BUITRAGO MD Justicifation of Admission Dx: Justifications for Admission: Justification of Admission Dx: Yes MARYJANE SERVIN MD Sep 27, 2021 10:31
--- NOTE | 2021-09-27 11:09 | PDOC ---
MIGUELINA STOREY OPTOMETRY DOCTOR 09/27/21 1109: CARDIO Progress Notes Date and Time Date of Service 09/27/21 Time of Evaluation 1105 Subjective Subjective: No Chest Pain, No shortness of breath, No Palpitations Vitals Vitals Vital Signs Date Time Temp Pulse Resp B/P (MAP) Pulse Ox O2 Delivery O2 Flow Rate FiO2 09/27/21 10:31 97.4 66 16 112/62 (79) 96 Nasal Cannula 2.0 97.4 Weight Weight [ ] Input and Output Intake and Output Intake and Output 09/27/21 07:00 Intake Total 820 ml Output Total 600 ml Balance 220 ml Intake Oral 820 ml Output Urine Total 600 ml Laboratory Labs Laboratory Tests Test 09/26/21 13:29 09/27/21 06:09 Sodium Level 143 mmol/L (136-145) Potassium Level 4.4 mmol/L (3.5-5.1) Chloride Level 109 mmol/L (98-107) Carbon Dioxide Level 25 mmol/L (21-32) Anion Gap 9 (6-14) Blood Urea Nitrogen 58 mg/dL (7-20) Creatinine 1.7 mg/dL (0.6-1.0) Estimated GFR (Cockcroft-Gault) 29.1 Glucose Level 217 mg/dL (70-99) Calcium Level 8.5 mg/dL (8.5-10.1) Phosphorus Level 3.0 mg/dL (2.6-4.7) Magnesium Level 2.4 mg/dL (1.8-2.4) 2.4 mg/dL (1.8-2.4) Albumin 2.6 g/dL (3.4-5.0) Microbiology Micro Microbiology 09/20/21 Urine Culture - Final, Complete Sultana Tropicalis Lactobacillus Species Physical Exam HEENT: Neck Supple W Full Motion Chest: Symmetric LUNGS: Other (diminished bases) Heart: RRR (a-paced ) Abdomen: Soft N/T Extremities: No Edema Neurology: alert, oriented, follow commands Assessment Assessment 1. Acute on chronic systolic CHF: better. now compensated 2. Ischemic Cardiomyopathy s/p AICD ([employer]). Last echo noted per [facility] records was in 2012 with an EF 38%. Echo this admission with LVEF 25% 3. CAD s/p PCI/stent to ramus in 2010. with known occluded LAD and circumflex, collaterals from RCA. Managed medically. 4. KORY on CKD; Cr better at 1.7 5. Hypertension; remains low end, but adequate 6. Hyperlipidemia; statin 7. H/o VF arrest; on Amiodarone therapy for rhythm maintenance. s/p AICD 8. Large ascending aortic saccular aneurysm; patient has declined any re- attempt at surgical intervention. Her previous heart catheterization was associated with an acute CVA 9. H/o CVA 10. Cardiogenic shock; RHC revealed normal biventricular filling pressures but with low cardiac output; improved. off milrinone Recommendations HF optimization Resume oral Lasix Secondary prevention Supportive care Follow up with primary employee counselor, Dr. Umanzor upon discharge Justicifation of Admission Dx: Justifications for Admission: Justification of Admission Dx: Yes ANA MARÍA MG MD 09/27/21 1740: CARDIO Progress Notes Plan Plan The patient was seen and interviewed as well as examined at the bedside. The chart was reviewed. The case was discussed. Agree with the plan of care. MIGUELINA STOREY APRN Sep 27, 2021 11:09 ANA MARÍA MG MD Sep 27, 2021 17:40
--- NOTE | 2021-09-27 12:00 | NUR ---
SS following up with discharge planning. SS reviewed pt chart and discussed with pt RN. Pt is currently requiring oxygen. Six minute walk completed and script for oxygen received. Pt and family requesting [facility], ; fax [phone]. Script and clinical phoned and fax[facility] to [facility]. Oxygen tank provided for home. Discharge orders received for home with home healthcare. SS met with pt and spouse in room and discussed. Pt and spouse agreeable and reported no preference of company. Discharge orders and referral sent to [facility], ; fax [phone]. Pt's RN notified.
--- NOTE | 2021-09-27 13:54 | NUR ---
Pt provided with discharge instructions, follow up, and oxygen tank to bring home. Pt PICC line removed and taken by wheelchair to ride.
[2021-09-27 15:23] LABS: ALBUMIN 2.6 g/dL (3.4-5.0); CALCIUM 8.7 mg/dL (8.5-10.1); CREATININE 1.5 mg/dL (0.6-1.0); GFR 33.6; PHOSPHORUS 3.5 mg/dL (2.6-4.7); POTASSIUM 4.9 mmol/L (3.5-5.1)
== END 2021-09-27 13:55 | disposition home health service (06) | DRG 286 ==
LOC: 6 SOUTH 13:53
PROVIDERS: ADMIT Internal Medicine; ATTEND Internal Medicine
PROC: 4A023N6 Measurement of Cardiac Sampling and Pressure, Right Heart, Percutaneous Approach (ICD-10-PCS; 2021-09-22)
PROC: B2111ZZ Fluoroscopy of Multiple Coronary Arteries using Low Osmolar Contrast (ICD-10-PCS; 2021-09-22)
PROC: 02HV33Z Insertion of Infusion Device into Superior Vena Cava, Percutaneous Approach (ICD-10-PCS; principal; 2021-09-23)
PROC: B5181ZA Fluoroscopy of Superior Vena Cava using Low Osmolar Contrast, Guidance (ICD-10-PCS; 2021-09-23)
PROC: B548ZZA Ultrasonography of Superior Vena Cava, Guidance (ICD-10-PCS; 2021-09-23)
DX: I13.0 Hypertensive heart and chronic kidney disease with heart failure and stage 1 through stage 4 chronic kidney disease, or unspecified chronic kidney disease (principal); I50.41 Acute combined systolic (congestive) and diastolic (congestive) heart failure; J96.01 Acute respiratory failure with hypoxia; R57.0 Cardiogenic shock; N17.9 Acute kidney failure, unspecified; E78.00 Pure hypercholesterolemia, unspecified; E78.5 Hyperlipidemia, unspecified; E87.5 Hyperkalemia; I25.10 Atherosclerotic heart disease of native coronary artery without angina pectoris; I25.5 Ischemic cardiomyopathy; I27.81 Cor pulmonale (chronic); M10.9 Gout, unspecified; N18.9 Chronic kidney disease, unspecified; Z20.822 Contact with and (suspected) exposure to COVID-19; Z86.73 Personal history of transient ischemic attack (TIA), and cerebral infarction without residual deficits; Z86.74 Personal history of sudden cardiac arrest; Z90.710 Acquired absence of both cervix and uterus; Z95.5 Presence of coronary angioplasty implant and graft; Z95.810 Presence of automatic (implantable) cardiac defibrillator; M19.90 Unspecified osteoarthritis, unspecified site; Z88.8 Allergy status to other drugs, medicaments and biological substances
CPT/HCPCS: 36415; 36573; 71045; 76770; 76937; 80048; 80053; 80061; 80069; 81001; 82728; 83540; 83550; 83735; 84145; 84443; 84550; 85018; 85025; 87077; 87086; 87106; 93306; 93451; 94618; 99152; C1751; C1773; C1892; C1894; J1250; J1644; J1756; J2250; J2260; J2405; J2930; J3010; J3490; J7050; J7512; P9046; 97116-GP; 97530-GO; 97530-GP; C8929; G0378; J7030